=== PATIENT | male | born 1965 | race Caucasian/White ===

== ENCOUNTER 2023-10-05 10:27 | Inpatient (IN) | payer MEDICAID ==
[~2023-10-05] VITALS: Ht 167.6 cm; Wt 49.9 kg
[2023-10-05 11:35] LABS: BASOPHILS % (AUTO) 0.1 % (0-1); EOSINOPHILS % (AUTO) 0.1 % (0-6); HEMATOCRIT 29.2 % (42.0-52.0); HEMOGLOBIN 9.9 g/dl (14.0-17.9); LYMPHOCYTES # (AUTO) 0.3 X10'3 (1.1-4.8); LYMPHOCYTES % (AUTO) 6.5 % (21-51); MEAN CORPUSCULAR HEMOGLOBIN 30.9 PG (27.0-31.0); MEAN CORPUSCULAR VOLUME 90.9 FL (78-98); MEAN PLATELET VOLUME 7.6 FL (7.4-10.4); MONOCYTES # (AUTO) 0.1 X10'3 (0-0.9); MONOCYTES % (AUTO) 1.5 % (2-12); NEUTROPHILS # (AUTO) 4.2 X10'3 (1.8-7.7); NEUTROPHILS % (AUTO) 91.8 % (42-75); PLATELET COUNT 169 X10'3 (140-440); RED BLOOD COUNT 3.22 X10'6 (4.70-6.10); RED CELL DISTRIBUTION WIDTH 12.8 % (11.5-14.5); WHITE BLOOD COUNT 4.5 X10'3 (4.5-11.0)
[2023-10-05] MEDS ORDERED: heparin 25,000 UNIT/250ml bag 250 ML IV PRN (12:00)
[2023-10-05] MEDS: aspirin 81mg tab.chew PO ONE (12:08)
[2023-10-05] MEDS: nitroGLYCERIN 1gm ointment UD TP ONE (12:09)
[2023-10-05 12:13] LABS: ALBUMIN 2.6 G/DL (3.4-5.0); ANION GAP 18 (8-16); BLOOD UREA NITROGEN 48 MG/DL (7-18); BUN/CREATININE RATIO 15.6 (10.0-20.0); CALCIUM 7.4 MG/DL (8.5-10.1); CHLORIDE 106 MMOL/L (99-107); CREATININE 3.08 MG/DL (0.60-1.10); GLUCOSE 117 MG/DL (70-104); LIPASE 17 U/L (16-77); PRO BRAIN NATRIURETIC PEPTIDE 1166 PG/ML (0-125); SODIUM 136 MMOL/L (135-145); eCRCL 21 ML/MIN; eGFR 21 ML/MIN
[2023-10-05 12:15] LABS: POTASSIUM 4.8 MMOL/L (3.5-5.1)
[2023-10-05] MEDS: heparin 10,000 units/1 ML INJ IV ONE (12:24)
[2023-10-05] MEDS: heparin 25,000 UNIT/250ml bag 250 ML IV PRN (12:24)
[2023-10-05 12:44] LABS: TOTAL CARBON DIOXIDE 12.2 MMOL/L (24-32)
[2023-10-05 12:47] LABS: BILIRUBIN,URINE NEGATIVE (Neg); CLARITY,URINE SLIGHTLY CLOUDY (Clear); COLOR,URINE YELLOW (Yellow); GLUCOSE, URINE NEGATIVE (Neg); KETONES,URINE TRACE mg/dl (Neg); LEUKOCYTE ESTERASE ,URINE NEGATIVE (Neg); NITRITES, URINE NEGATIVE (Neg); OCCULT BLOOD,URINE MODERATE (Neg); PH,URINE 5.5 (4.8-8.0); PROTEIN,URINE NEGATIVE (Neg); UROBILINOGEN,URINE 0.2 E.U/dL (0.2-1.0)
[2023-10-05 12:48] LABS: MAGNESIUM 1.7 MG/DL (1.5-2.4); PRO BRAIN NATRIURETIC PEPTIDE 1308 PG/ML (0-125)
[2023-10-05 12:53] LABS: UA COLLECTION TYPE CLN CATCH MIDSTREAM
[2023-10-05] MEDS ORDERED: magnesium Cl slow-release 64mg tablet PO PRN (12:55)
[2023-10-05] MEDS ORDERED: potassium Cl 20 mEq SR tablet PO PRN (12:55)
[2023-10-05] MEDS ORDERED: acetaminophen 325mg tablet PO PRN (12:55)
[2023-10-05] MEDS ORDERED: magnesium 4gm in 100ml NS 100 ML IV PRN (12:55)
[2023-10-05] MEDS ORDERED: magnesium 2GM in 50ml NS 50 ML IV PRN (12:55)
[2023-10-05] MEDS ORDERED: magnesium hydroxide 30ml (MOM) UD suspension PO PRN (12:55)
[2023-10-05] MEDS ORDERED: ondansetron/PF 4mg/2ml inj IV PRN (12:55)
[2023-10-05] MEDS ORDERED: mag hydrox/Alum hydrox/simeth 30ml oral suspension PO PRN (12:55)
[2023-10-05] MEDS ORDERED: potassium Cl 40MEQ/1/2NS 520ml 520 ML IV PRN (12:55)
[2023-10-05 12:57] LABS: AMORPHOUS URATES 1+
[2023-10-05 12:59] LABS: BACTERIA,URINE FEW /HPF (Neg); SQUAMOUS EPITHELIAL CELL,UR FEW /LPF (FEW)
[2023-10-05 13:00] LABS: RBC,URINE 0-2 /HPF (0-2); WBC,URINE 0-4 /HPF (0-4)
[2023-10-05 13:01] LABS: MUCUS STRANDS FEW /LPF (Neg)
[2023-10-05] MEDS: PERFLUTREN PROTEIN-A MICROSPHR (Optison) 0.22 MG/ML 3ML VIAL IV ONE (13:03)
[2023-10-05 13:57] LABS: CHOL/HDL RATIO 3.2 (0.00-4.99); CHOLESTEROL 86 MG/DL (0-200); HDL CHOLESTEROL 27 MG/DL (35-60); LDL CHOLESTEROL 34 MG/DL (50-100); PHOSPHORUS 5.5 MG/DL (2.3-4.5); THYROID STIMULATING HORMONE 1.22 ulU/ml (0.34-4.50); TRIGLYCERIDES 61 MG/DL (20-135)
[2023-10-05 14:01] LABS: PHOSPHORUS 5.6 MG/DL (2.3-4.5)
[2023-10-05] MEDS: atorvastatin 20mg tablet PO SCH ×2 (14:05→14:07)
[2023-10-05] MEDS: carVEDilol 3.125mg tablet PO SCH (14:05)
[2023-10-05] MEDS: normal saline 1000ml 1,000 ML IV SCH (14:08)
[2023-10-05] MEDS: aspirin 325mg tablet, delayed-release (Ecotrin) PO ONE (14:14)
[2023-10-05] MEDS: ringers solution, lacted 1,000 ML IV SCH (14:53)
[2023-10-05 14:57] LABS: % IRON SATURATION 19 % (11-46); IRON 23 UG/DL (53-167); TOTAL IRON BINDING CAPACITY 122 UG/DL (259-388)
[2023-10-05] MEDS: SODIUM BICARBONATE 150MEQ IN D5W 1,000 ML IV SCH (15:19)
[2023-10-05 17:37] LABS: ABG BASE EXCESS -13.6 mmol/L (-2.0-2.0); ABG HCO3 11.3 mmol/L (22.0-26.0); ABG OXYGEN SATURATION 97.3 % (94-97); ABG PCO2 (T) 23.4 mmHg (35.0-48.0); ABG PH (T) 7.299 (7.340-7.440); ABG PO2 (T) 107.9 mmHg (75.0-100.0); ALLEN'S TEST POSITIVE; FCOHb 0.2 % (0.0-3.9); FHHb 2.7 % (0.0-5.0); FMetHb 0.1 % (0.0-1.5); PATIENT TEMPERATURE 36.7; TOTAL HEMOGLOBIN 10.3 G/dl (14.0-17.9)
[2023-10-05] MEDS: lactose-reduced food (Ensure High Protein) 237ml bottle PO SCH (18:00)
[2023-10-05 19:30] VITALS: BP 110/66; PULSE 82; RESP 14; TEMP 97.9; O2SAT 100
[2023-10-05] MEDS: docusate sod 100mg capsule PO SCH (20:00)
[2023-10-05] MEDS: K and/or MAG REPLACEMENT MC SCH (20:00)
[2023-10-05] MEDS: morphine 2 MG/ML inj. syringe IV PRN (21:59)
[2023-10-05 22:00] VITALS: BP 109/64; PULSE 88; RESP 16; TEMP 97.5; O2SAT 99
[2023-10-06 02:00] VITALS: BP 93/61; PULSE 93; RESP 22; TEMP 97.7; O2SAT 93
[2023-10-06] MEDS: HYDROcodone/acetaminophen 5mg/325mg tablet PO PRN (05:46)
[2023-10-06 06:00] VITALS: BP 95/59; PULSE 82; RESP 18; TEMP 97.5; O2SAT 100
[2023-10-06 06:20] LABS: BASOPHILS % (AUTO) 0.1 % (0-1); EOSINOPHILS % (AUTO) 0 % (0-6); HEMOGLOBIN 7.4 g/dl (14.0-17.9); LYMPHOCYTES # (AUTO) 0.6 X10'3 (1.1-4.8); LYMPHOCYTES % (AUTO) 11.3 % (21-51); MEAN CORPUSCULAR HEMOGLOBIN 30.4 PG (27.0-31.0); MEAN CORPUSCULAR HGB CONC 34.7 g/dL (33.0-36.5); MEAN CORPUSCULAR VOLUME 87.8 FL (78-98); MEAN PLATELET VOLUME 7.5 FL (7.4-10.4); MONOCYTES # (AUTO) 0.2 X10'3 (0-0.9); MONOCYTES % (AUTO) 4.9 % (2-12); NEUTROPHILS # (AUTO) 4.2 X10'3 (1.8-7.7); NEUTROPHILS % (AUTO) 83.7 % (42-75); PLATELET COUNT 150 X10'3 (140-440); RED BLOOD COUNT 2.44 X10'6 (4.70-6.10); RED CELL DISTRIBUTION WIDTH 12.7 % (11.5-14.5)
[2023-10-06 06:45] LABS: HEMATOCRIT 21.4 % (42.0-52.0)
[2023-10-06 07:03] LABS: ALBUMIN 2.3 G/DL (3.4-5.0); ANION GAP 11 (8-16); BLOOD UREA NITROGEN 60 MG/DL (7-18); BUN/CREATININE RATIO 22.7 (10.0-20.0); CALCIUM 7.2 MG/DL (8.5-10.1); CHLORIDE 107 MMOL/L (99-107); CREATININE 2.64 MG/DL (0.60-1.10); FERRITIN 696 NG/ML (26-388); GLUCOSE 219 MG/DL (70-104); MAGNESIUM 1.7 MG/DL (1.5-2.4); POTASSIUM 3.6 MMOL/L (3.5-5.1); PRO BRAIN NATRIURETIC PEPTIDE 3877 PG/ML (0-125); SODIUM 138 MMOL/L (135-145); TOTAL CARBON DIOXIDE 19.6 MMOL/L (24-32); eCRCL 23 ML/MIN; eGFR 25 ML/MIN
[2023-10-06 07:15] LABS: % IRON SATURATION 84 % (11-46); IRON 94 UG/DL (53-167); TOTAL IRON BINDING CAPACITY 112 UG/DL (259-388)
[2023-10-06] MEDS: FLU VACC QS2023-24(6MOS UP)/PF 60 MCG/0.5 ML SYRINGE IM ONE (10:00)
[2023-10-06 11:00] VITALS: BP 98/60; PULSE 83; RESP 12; TEMP 97.9; O2SAT 98
[2023-10-06 15:00] VITALS: BP 98/79; PULSE 78; RESP 8; TEMP 98.1; O2SAT 93
[2023-10-06 18:00] VITALS: BP 89/58; PULSE 77; RESP 15; TEMP 97.8; O2SAT 97
[2023-10-06] MEDS ORDERED: ferrous sulfate ER tablet 140 MG TABLET.ER PO SCH (19:15)
[2023-10-06] MEDS: folic acid/vitamin B complex w/vitamin C 0.8mg tablet PO SCH (19:15)
[2023-10-06] MEDS: FERROUS SULFATE 142 MG TABLET.ER (45mg elemental) PO SCH (21:03)
[2023-10-06 22:00] VITALS: BP 97/57; PULSE 80; RESP 12; TEMP 98.5; O2SAT 100
[2023-10-07] VITALS (15 sets, daily range): BP systolic 90–159; BP diastolic 56–79; PULSE 70–107; RESP 12–20; TEMP 97.4–99.3; O2SAT 91–98
[2023-10-07 06:51] LABS: BASOPHILS % (AUTO) 0.2 % (0-1); EOSINOPHILS % (AUTO) 1.2 % (0-6); LYMPHOCYTES # (AUTO) 0.5 X10'3 (1.1-4.8); LYMPHOCYTES % (AUTO) 16.3 % (21-51); MEAN CORPUSCULAR HGB CONC 34.8 g/dL (33.0-36.5); MEAN CORPUSCULAR VOLUME 89.1 FL (78-98); MEAN PLATELET VOLUME 7.4 FL (7.4-10.4); MONOCYTES # (AUTO) 0.1 X10'3 (0-0.9); MONOCYTES % (AUTO) 5.1 % (2-12); NEUTROPHILS # (AUTO) 2.2 X10'3 (1.8-7.7); NEUTROPHILS % (AUTO) 77.2 % (42-75); PLATELET COUNT 124 X10'3 (140-440); RED BLOOD COUNT 2.11 X10'6 (4.70-6.10); WHITE BLOOD COUNT 2.9 X10'3 (4.5-11.0)
[2023-10-07 07:23] LABS: HEMATOCRIT 18.8 % (42.0-52.0); HEMOGLOBIN 6.5 g/dl (14.0-17.9)
[2023-10-07 07:24] LABS: ALBUMIN 2.3 G/DL (3.4-5.0); ANION GAP 13 (8-16); BLOOD UREA NITROGEN 47 MG/DL (7-18); BUN/CREATININE RATIO 26.6 (10.0-20.0); CALCIUM 7.5 MG/DL (8.5-10.1); CHLORIDE 112 MMOL/L (99-107); CREATININE 1.77 MG/DL (0.60-1.10); GLUCOSE 117 MG/DL (70-104); MAGNESIUM 1.6 MG/DL (1.5-2.4); POTASSIUM 3.3 MMOL/L (3.5-5.1); PRO BRAIN NATRIURETIC PEPTIDE 4706 PG/ML (0-125); SODIUM 145 MMOL/L (135-145); TOTAL CARBON DIOXIDE 19.9 MMOL/L (24-32); eCRCL 34 ML/MIN; eGFR 39 ML/MIN
[2023-10-07 08:39] LABS: TOTAL CELLS COUNTED 100
[2023-10-07 08:40] LABS: PLATELET ESTIMATE DECREASED
[2023-10-07 08:41] LABS: ELLIPTOCYTES FEW; SCHISTOCYTES FEW
[2023-10-07] MEDS: pantoprazole 40 MG vial IV SCH (08:50)
[2023-10-07 09:06] LABS: MEAN CORPUSCULAR HEMOGLOBIN 30.6 PG (27.0-31.0); MEAN CORPUSCULAR HGB CONC 34.3 g/dL (33.0-36.5); MEAN CORPUSCULAR VOLUME 89.3 FL (78-98); MEAN PLATELET VOLUME 7.5 FL (7.4-10.4); PLATELET COUNT 125 X10'3 (140-440); RED CELL DISTRIBUTION WIDTH 13.2 % (11.5-14.5); WHITE BLOOD COUNT 2.8 X10'3 (4.5-11.0)
[2023-10-07 09:13] LABS: HEMATOCRIT 18.7 % (42.0-52.0); HEMOGLOBIN 6.4 g/dl (14.0-17.9)
[2023-10-07] MEDS: NUT.TX.IMP.RENAL FXN,LAC-REDUC (Nepro) 237 ML VANILLA PO SCH (13:00)
[2023-10-07] MEDS: EPOETIN ALFA-EPBX 20,000 UNIT/ML 1 ML MDV SQ ONE (13:50)
[2023-10-07] MEDS: potassium Cl 20 mEq SR tablet PO PRN (20:12)
[2023-10-08] VITALS (11 sets, daily range): BP systolic 95–149; BP diastolic 55–93; PULSE 60–81; RESP 10–17; TEMP 97.3–98.4; O2SAT 96–100
[2023-10-08 06:34] LABS: BASOPHILS % (AUTO) 0.5 % (0-1); EOSINOPHILS # (AUTO) 0.1 X10'3 (0-0.9); EOSINOPHILS % (AUTO) 2.4 % (0-6); HEMATOCRIT 28.9 % (42.0-52.0); HEMOGLOBIN 10.1 g/dl (14.0-17.9); LYMPHOCYTES # (AUTO) 0.8 X10'3 (1.1-4.8); LYMPHOCYTES % (AUTO) 36.8 % (21-51); MEAN CORPUSCULAR HEMOGLOBIN 30.4 PG (27.0-31.0); MEAN CORPUSCULAR HGB CONC 34.8 g/dL (33.0-36.5); MEAN CORPUSCULAR VOLUME 87.2 FL (78-98); MEAN PLATELET VOLUME 7.5 FL (7.4-10.4); MONOCYTES # (AUTO) 0.3 X10'3 (0-0.9); MONOCYTES % (AUTO) 11.1 % (2-12); NEUTROPHILS # (AUTO) 1.1 X10'3 (1.8-7.7); NEUTROPHILS % (AUTO) 49.2 % (42-75); PLATELET COUNT 106 X10'3 (140-440); RED BLOOD COUNT 3.31 X10'6 (4.70-6.10); RED CELL DISTRIBUTION WIDTH 14.5 % (11.5-14.5); WHITE BLOOD COUNT 2.3 X10'3 (4.5-11.0)
[2023-10-08 07:09] LABS: ALBUMIN 2.3 G/DL (3.4-5.0); ANION GAP 6 (8-16); BLOOD UREA NITROGEN 32 MG/DL (7-18); BUN/CREATININE RATIO 24.2 (10.0-20.0); CALCIUM 7.8 MG/DL (8.5-10.1); CREATININE 1.32 MG/DL (0.60-1.10); GLUCOSE 100 MG/DL (70-104); MAGNESIUM 1.6 MG/DL (1.5-2.4); POTASSIUM 3.9 MMOL/L (3.5-5.1); PRO BRAIN NATRIURETIC PEPTIDE 6202 PG/ML (0-125); SODIUM 145 MMOL/L (135-145); TOTAL CARBON DIOXIDE 24.7 MMOL/L (24-32); eCRCL 46 ML/MIN; eGFR 55 ML/MIN
[2023-10-08 08:00] LABS: TOTAL CELLS COUNTED 100
[2023-10-08 08:02] LABS: BURR CELLS FEW; ELLIPTOCYTES FEW; PLATELET ESTIMATE DECREASED
[2023-10-08 09:10] LABS: CHLORIDE 114 MMOL/L (99-107)
[2023-10-08] MEDS: furosemide 20 MG/2 ML vial IV SCH (10:50)
[2023-10-08] MEDS ORDERED: LIDOcaine Viscous 15ml cup ONE ×2 (13:19→14:00)
[2023-10-08] MEDS ORDERED: MIDAZolam 1 MG/ML 5ML VIAL ONE (14:02)
[2023-10-08] MEDS ORDERED: fentaNYL/PF 50MCG/1 ML 2ML syringe ONE (14:02)
[2023-10-09 00:19] VITALS: RESP 12; O2SAT 96
[2023-10-09 02:00] VITALS: BP 125/70; RESP 13; TEMP 97.8; O2SAT 86
[2023-10-09 06:00] VITALS: BP 115/20; PULSE 72; RESP 16; TEMP 97.7; O2SAT 97
[2023-10-09 06:00] LABS: ANION GAP 9 (8-16); BLOOD UREA NITROGEN 30 MG/DL (7-18); BUN/CREATININE RATIO 23.3 (10.0-20.0); CHLORIDE 107 MMOL/L (99-107); CREATININE 1.29 MG/DL (0.60-1.10); GLUCOSE 154 MG/DL (70-104); POTASSIUM 3.2 MMOL/L (3.5-5.1); SODIUM 143 MMOL/L (135-145); TOTAL CARBON DIOXIDE 27.4 MMOL/L (24-32)
[2023-10-09 06:01] LABS: ALBUMIN 2.6 G/DL (3.4-5.0); CALCIUM 7.9 MG/DL (8.5-10.1); MAGNESIUM 1.3 MG/DL (1.5-2.4); eCRCL 48 ML/MIN; eGFR 57 ML/MIN
[2023-10-09 06:22] LABS: BASOPHILS % (AUTO) 0.5 % (0-1); EOSINOPHILS # (AUTO) 0.1 X10'3 (0-0.9); EOSINOPHILS % (AUTO) 5.8 % (0-6); HEMATOCRIT 32.1 % (42.0-52.0); HEMOGLOBIN 11.3 g/dl (14.0-17.9); LYMPHOCYTES # (AUTO) 0.9 X10'3 (1.1-4.8); LYMPHOCYTES % (AUTO) 39.6 % (21-51); MEAN CORPUSCULAR HEMOGLOBIN 30.5 PG (27.0-31.0); MEAN CORPUSCULAR HGB CONC 35.2 g/dL (33.0-36.5); MEAN CORPUSCULAR VOLUME 86.7 FL (78-98); MEAN PLATELET VOLUME 7.6 FL (7.4-10.4); MONOCYTES # (AUTO) 0.3 X10'3 (0-0.9); MONOCYTES % (AUTO) 10.8 % (2-12); NEUTROPHILS % (AUTO) 43.3 % (42-75); PLATELET COUNT 131 X10'3 (140-440); RED CELL DISTRIBUTION WIDTH 14.2 % (11.5-14.5); WHITE BLOOD COUNT 2.4 X10'3 (4.5-11.0)
[2023-10-09 07:38] LABS: ELLIPTOCYTES FEW; PLATELET ESTIMATE DECREASED; TOTAL CELLS COUNTED 100
[2023-10-09 08:00] VITALS: RESP 15; O2SAT 95
[2023-10-09] MEDS ORDERED: PANT-47 PO (10:58)
[2023-10-09] MEDS ORDERED: FURO-150 PO (10:58)
[2023-10-09 11:00] VITALS: BP 129/83; PULSE 74; RESP 15; TEMP 97.4; O2SAT 99
[2023-10-09] MEDS: magnesium oxide 400mg tablet PO ONE (11:00)
== END 2023-10-09 14:00 | disposition home or self-care (01) | DRG 241 ==
LOC: ER 10:27 → ED HOLD 12:58 → EDBEDREQ 17:55 → PCU 3S 19:10
PROVIDERS: ADMIT Internal Medicine; ATTEND Internal Medicine
PROC: 30233N1 Transfusion of Nonautologous Red Blood Cells into Peripheral Vein, Percutaneous Approach (ICD-10-PCS; 2023-10-07)
PROC: 0DB68ZX Excision of Stomach, Via Natural or Artificial Opening Endoscopic, Diagnostic (ICD-10-PCS; principal; 2023-10-08)
DX: K29.00 Acute gastritis without bleeding (principal); D61.818 Other pancytopenia; N17.9 Acute kidney failure, unspecified; E46 Unspecified protein-calorie malnutrition; E87.20 Acidosis, unspecified; E11.22 Type 2 diabetes mellitus with diabetic chronic kidney disease; E86.0 Dehydration; N18.9 Chronic kidney disease, unspecified; Z90.5 Acquired absence of kidney; Z92.21 Personal history of antineoplastic chemotherapy; Z85.528 Personal history of other malignant neoplasm of kidney; Z68.1 Body mass index [BMI] 19.9 or less, adult
CPT/HCPCS: 36415; 36430; 36600; 43239; 71045; 76770; 80048; 80061; 81001; 82607; 82728; 82803; 83036; 83540; 83550; 83690; 83735; 83880; 84100; 84443; 84484; 85007; 85018; 85025; 85027; 85730; 86885; 86900; 86901; 86920; 87081; 90686; 93005; 93306; 99152; 99285; A4615; A4620; A6212; C9113; G0378; J1644; J1940; J2250; J2270; J3010; J3490; J7030; J7070; J7120; P9016; Q4081

== ENCOUNTER 2024-03-06 08:20 | Inpatient (IN) | payer MEDICAID ==
[~2024-03-06] VITALS: Ht 170.2 cm; Wt 54.5 kg
[~2024-03-06 08:20] MED LIST: PANT-47 PO
[2024-03-06 08:40] LABS: BASOPHILS % (AUTO) 0.3 % (0-1); EOSINOPHILS % (AUTO) 0.8 % (0-6); HEMOGLOBIN 7.8 g/dl (14.0-17.9); LYMPHOCYTES # (AUTO) 0.5 X10'3 (1.1-4.8); LYMPHOCYTES % (AUTO) 20.1 % (21-51); MEAN CORPUSCULAR HEMOGLOBIN 30.8 PG (27.0-31.0); MEAN CORPUSCULAR HGB CONC 32.5 g/dL (33.0-36.5); MEAN CORPUSCULAR VOLUME 94.9 FL (78-98); MEAN PLATELET VOLUME 6.3 FL (7.4-10.4); MONOCYTES # (AUTO) 0.2 X10'3 (0-0.9); MONOCYTES % (AUTO) 6.5 % (2-12); NEUTROPHILS # (AUTO) 1.9 X10'3 (1.8-7.7); NEUTROPHILS % (AUTO) 72.3 % (42-75); PLATELET COUNT 155 X10'3 (140-440); RED BLOOD COUNT 2.53 X10'6 (4.70-6.10); RED CELL DISTRIBUTION WIDTH 14.9 % (11.5-14.5); WHITE BLOOD COUNT 2.6 X10'3 (4.5-11.0)
[2024-03-06] MEDS: normal saline 1000ml 1,000 ML IV ONE ×2 (08:45→16:50)
[2024-03-06] MEDS: normal saline 1000ML IV soln IVB ONE ×3 (08:45→15:36)
[2024-03-06] MEDS: diatr meglu/diatrizoate 30ml oral sol.-(3 dose) bottle PO SCH (08:46)
[2024-03-06 08:53] LABS: ALANINE AMINOTRANSFERASE 21 U/L (12-78); ALBUMIN/GLOBULIN RATIO 1.1 (1.1-1.5); ALKALINE PHOSPHATASE 90 IU/L (46-116); ANION GAP 10 (8-16); ASPARTATE AMINO TRANSFERASE 19 U/L (10-37); BILIRUBIN,TOTAL 0.6 MG/DL (0.1-1.0); BLOOD UREA NITROGEN 40 MG/DL (7-18); BUN/CREATININE RATIO 20.9 (10.0-20.0); CALCIUM 7.9 MG/DL (8.5-10.1); CHLORIDE 110 MMOL/L (99-107); CREATININE 1.91 MG/DL (0.60-1.10); GLUCOSE 79 MG/DL (70-104); LIPASE 29 U/L (16-77); MAGNESIUM 1.6 MG/DL (1.5-2.4); POTASSIUM 4.5 MMOL/L (3.5-5.1); SODIUM 138 MMOL/L (135-145); TOTAL CARBON DIOXIDE 17.6 MMOL/L (24-32); TOTAL PROTEIN 5.7 G/DL (6.4-8.2); eCRCL 31 ML/MIN; eGFR 36 ML/MIN
[2024-03-06 09:01] LABS: PLATELET ESTIMATE DECREASED; TOTAL CELLS COUNTED 100
[2024-03-06 09:12] LABS: LACTATE DEHYDROGENASE 386 U/L (85-227)
[2024-03-06 12:25] LABS: APTT 33 SECONDS (22-32); INR 1.1 INR; PROTHROMBIN TIME 11.5 SECONDS (9.0-12.0)
[2024-03-06] MEDS: metroNIDAZOLE-Flagyl 500mg/NS 100 ML IV STA (12:30)
[2024-03-06] MEDS: acetaminophen 1,000mg/100ml IV 100 ML IV ONE (12:30)
[2024-03-06 13:03] LABS: BILIRUBIN,URINE NEGATIVE (Neg); CLARITY,URINE CLEAR (Clear); COLOR,URINE YELLOW (Yellow); GLUCOSE, URINE NEGATIVE (Neg); KETONES,URINE NEGATIVE (Neg); LEUKOCYTE ESTERASE ,URINE NEGATIVE (Neg); OCCULT BLOOD,URINE NEGATIVE (Neg); PH,URINE 5.5 (4.8-8.0); PROTEIN,URINE NEGATIVE (Neg); UROBILINOGEN,URINE 0.2 E.U/dL (0.2-1.0)
[2024-03-06 13:11] LABS: NITRITES, URINE NEGATIVE (Neg)
[2024-03-06 13:27] LABS: UA COLLECTION TYPE CLN CATCH MIDSTREAM
[2024-03-06 15:05] LABS: ETHANOL < 10 MG/DL (<10)
[2024-03-06 15:19] LABS: OSMOLALITY 290 MOSM/K (280-300)
[2024-03-06 15:44] LABS: OCCULT BLOOD STOOL POSITIVE (Neg)
[2024-03-06 16:23] VITALS: BP 87/51; PULSE 83; RESP 20; TEMP 97.1; O2SAT 96
[2024-03-06] MEDS: normal saline 1000ml 1,000 ML IV SCH (16:26)
[2024-03-06] MEDS: loperamide 2mg capsule PO ONE (16:52)
[2024-03-06 17:27] VITALS: RESP 20; O2SAT 96
[2024-03-06] MEDS: pantoprazole 40MG/NS 100ML BAG 100 ML IV SCH (17:34)
[2024-03-06 18:00] VITALS: BP 80/45; PULSE 78; RESP 15; TEMP 97.9; O2SAT 95
[2024-03-06] MEDS ORDERED: potassium Cl 20 mEq SR tablet PO PRN ×2 (18:15)
[2024-03-06] MEDS ORDERED: magnesium hydroxide 30ml (MOM) UD suspension PO PRN (18:15)
[2024-03-06] MEDS ORDERED: ondansetron/PF 4mg/2ml inj IV PRN (18:15)
[2024-03-06] MEDS ORDERED: magnesium sulf-water 2g/50mL 50 ML IV PRN (18:15)
[2024-03-06] MEDS ORDERED: magnesium sulf-water 4G/100mL 100 ML IV PRN (18:15)
[2024-03-06] MEDS ORDERED: mag hydrox/Alum hydrox/simeth 30ml oral suspension PO PRN (18:15)
[2024-03-06] MEDS ORDERED: acetaminophen 325mg tablet PO PRN (18:15)
[2024-03-06] MEDS ORDERED: potassium Cl 40MEQ/1/2NS 520ml 520 ML IV PRN (18:15)
[2024-03-06] MEDS ORDERED: magnesium Cl slow-release 64mg tablet PO PRN (18:15)
[2024-03-06 19:00] VITALS: RESP 15; O2SAT 94; O2SAT 95
[2024-03-06] MEDS: docusate sod 100mg capsule PO SCH (19:35)
[2024-03-06] MEDS: K and/or MAG REPLACEMENT MC SCH (19:35)
[2024-03-06 20:38] LABS: HEMATOCRIT 24.3 % (42.0-52.0); MEAN CORPUSCULAR HEMOGLOBIN 31.6 PG (27.0-31.0); MEAN CORPUSCULAR HGB CONC 32.8 g/dL (33.0-36.5); MEAN CORPUSCULAR VOLUME 96.4 FL (78-98); MEAN PLATELET VOLUME 6.7 FL (7.4-10.4); PLATELET COUNT 134 X10'3 (140-440); RED BLOOD COUNT 2.52 X10'6 (4.70-6.10); RED CELL DISTRIBUTION WIDTH 14.6 % (11.5-14.5); WHITE BLOOD COUNT 2.4 X10'3 (4.5-11.0)
[2024-03-06 22:00] VITALS: BP 104/60; PULSE 97; RESP 17; TEMP 99.3; O2SAT 95
[2024-03-07] MEDS: piperacillin/tazo 3.375gm/50ml 50 ML IV SCH (00:05)
[2024-03-07 06:30] VITALS: BP 101/56; PULSE 96; RESP 18; TEMP 99.2; O2SAT 94
[2024-03-07 06:30] LABS: C DIFF ANTIGEN NEGATIVE (NEGATIVE); C DIFF SPECIMEN=DIARRHEA? ACCEPTABLE; C DIFFICILE TOXINS A&B NEGATIVE (Neg)
[2024-03-07 07:47] LABS: BASOPHILS % (AUTO) 0.2 % (0-1); EOSINOPHILS % (AUTO) 0.7 % (0-6); HEMOGLOBIN 7.9 g/dl (14.0-17.9); LYMPHOCYTES # (AUTO) 0.6 X10'3 (1.1-4.8); LYMPHOCYTES % (AUTO) 24.3 % (21-51); MEAN CORPUSCULAR HEMOGLOBIN 30.7 PG (27.0-31.0); MEAN CORPUSCULAR HGB CONC 31.5 g/dL (33.0-36.5); MEAN CORPUSCULAR VOLUME 97.4 FL (78-98); MEAN PLATELET VOLUME 6.7 FL (7.4-10.4); MONOCYTES # (AUTO) 0.2 X10'3 (0-0.9); MONOCYTES % (AUTO) 10.1 % (2-12); NEUTROPHILS # (AUTO) 1.5 X10'3 (1.8-7.7); NEUTROPHILS % (AUTO) 64.7 % (42-75); PLATELET COUNT 114 X10'3 (140-440); RED BLOOD COUNT 2.57 X10'6 (4.70-6.10); RED CELL DISTRIBUTION WIDTH 15.2 % (11.5-14.5); WHITE BLOOD COUNT 2.3 X10'3 (4.5-11.0)
[2024-03-07 08:00] LABS: % IRON SATURATION 7 % (11-46); IRON 10 UG/DL (53-167); TOTAL IRON BINDING CAPACITY 153 UG/DL (259-388)
[2024-03-07 08:00] LABS: HIV ANTIBODY 1&2 RAPID NON-REACTIVE (Neg)
[2024-03-07 08:07] LABS: ALANINE AMINOTRANSFERASE 24 U/L (12-78); ALBUMIN 2.6 G/DL (3.4-5.0); ALKALINE PHOSPHATASE 93 IU/L (46-116); ANION GAP 17 (8-16); ASPARTATE AMINO TRANSFERASE 38 U/L (10-37); BILIRUBIN,TOTAL 0.5 MG/DL (0.1-1.0); BLOOD UREA NITROGEN 33 MG/DL (7-18); BUN/CREATININE RATIO 18.6 (10.0-20.0); CALCIUM 7.9 MG/DL (8.5-10.1); CHLORIDE 107 MMOL/L (99-107); CREATININE 1.77 MG/DL (0.60-1.10); FERRITIN 581 NG/ML (26-388); MAGNESIUM 1.5 MG/DL (1.5-2.4); POTASSIUM 4.2 MMOL/L (3.5-5.1); SODIUM 133 MMOL/L (135-145); TOTAL PROTEIN 5.1 G/DL (6.4-8.2); eCRCL 34 ML/MIN; eGFR 39 ML/MIN
[2024-03-07 08:10] LABS: GLUCOSE 35 MG/DL (70-104); TOTAL CARBON DIOXIDE 8.9 MMOL/L (24-32)
[2024-03-07 08:24] LABS: ACANTHOCYTES FEW; BURR CELLS FEW; ELLIPTOCYTES FEW; PLATELET ESTIMATE DECREASED; TOTAL CELLS COUNTED 100
[2024-03-07 08:25] LABS: TEAR DROP CELLS FEW
[2024-03-07] MEDS: dextrose 50%-water 50ml dispensing syringe IV ONE (08:49)
[2024-03-07] MEDS: HYDROcodone/acetaminophen 5mg/325mg tablet PO PRN (08:54)
[2024-03-07] MEDS ORDERED: morphine 2 MG/ML inj. syringe IV PRN (08:55)
[2024-03-07] MEDS: sodium bicarbonate 1meq/ml inj 150 ML in dextrose 5%-water 1,000 ML IV SCH (10:19)
[2024-03-07 11:00] VITALS: BP 88/49; PULSE 93; RESP 18; TEMP 98.5; O2SAT 94
[2024-03-07 14:04] LABS: ALBUMIN 2.4 G/DL (3.4-5.0); ANION GAP 9 (8-16); BLOOD UREA NITROGEN 31 MG/DL (7-18); BUN/CREATININE RATIO 15.8 (10.0-20.0); CALCIUM 7.8 MG/DL (8.5-10.1); CHLORIDE 109 MMOL/L (99-107); CREATININE 1.96 MG/DL (0.60-1.10); GLUCOSE 89 MG/DL (70-104); POTASSIUM 4.1 MMOL/L (3.5-5.1); SODIUM 132 MMOL/L (135-145); eCRCL 31 ML/MIN; eGFR 35 ML/MIN
[2024-03-07 14:17] LABS: TOTAL CARBON DIOXIDE 14.2 MMOL/L (24-32)
[2024-03-07 18:00] VITALS: BP_SYST 82; BP_DIAS 56; BP_DIAS 86; PULSE 85; RESP 18; TEMP 98.7; O2SAT 92
[2024-03-07 20:30] VITALS: BP 87/57; PULSE 89; O2SAT 93
[2024-03-07 20:35] VITALS: BP 97/57
[2024-03-07 21:23] LABS: HEMOGLOBIN 7.1 g/dl (14.0-17.9); MEAN CORPUSCULAR HGB CONC 33.2 g/dL (33.0-36.5); MONOCYTES # (AUTO) 0.2 X10'3 (0-0.9); NEUTROPHILS # (AUTO) 0.8 X10'3 (1.8-7.7); RED CELL DISTRIBUTION WIDTH 14.8 % (11.5-14.5); WHITE BLOOD COUNT 1.6 X10'3 (4.5-11.0)
[2024-03-07 21:25] LABS: BASOPHILS % (AUTO) 0.2 % (0-1); EOSINOPHILS # (AUTO) 0.1 X10'3 (0-0.9); EOSINOPHILS % (AUTO) 3.3 % (0-6); LYMPHOCYTES # (AUTO) 0.5 X10'3 (1.1-4.8); LYMPHOCYTES % (AUTO) 34.8 % (21-51); MEAN CORPUSCULAR HEMOGLOBIN 31.5 PG (27.0-31.0); MEAN CORPUSCULAR VOLUME 94.7 FL (78-98); MEAN PLATELET VOLUME 6.7 FL (7.4-10.4); NEUTROPHILS % (AUTO) 49.7 % (42-75); PLATELET COUNT 91 X10'3 (140-440); RED BLOOD COUNT 2.25 X10'6 (4.70-6.10)
[2024-03-07 21:29] LABS: ALBUMIN 2.3 G/DL (3.4-5.0); ANION GAP 9 (8-16); BLOOD UREA NITROGEN 29 MG/DL (7-18); CALCIUM 7.8 MG/DL (8.5-10.1); CHLORIDE 108 MMOL/L (99-107); CREATININE 1.93 MG/DL (0.60-1.10); GLUCOSE 102 MG/DL (70-104); POTASSIUM 3.7 MMOL/L (3.5-5.1); SODIUM 132 MMOL/L (135-145); TOTAL CARBON DIOXIDE 15.1 MMOL/L (24-32); eCRCL 31 ML/MIN; eGFR 36 ML/MIN
[2024-03-07 21:39] LABS: HEMATOCRIT 21.3 % (42.0-52.0)
[2024-03-07 22:00] VITALS: BP 94/55; PULSE 87; RESP 16; TEMP 98.1; O2SAT 96
[2024-03-08 05:36] LABS: ABSOLUTE RETICS # 48400 /CUMM (23000-93000); BASOPHILS % (AUTO) 0.5 % (0-1); EOSINOPHILS # (AUTO) 0.1 X10'3 (0-0.9); EOSINOPHILS % (AUTO) 4.5 % (0-6); HEMOGLOBIN 7.3 g/dl (14.0-17.9); LYMPHOCYTES # (AUTO) 0.6 X10'3 (1.1-4.8); LYMPHOCYTES % (AUTO) 38.5 % (21-51); MEAN CORPUSCULAR HEMOGLOBIN 31.5 PG (27.0-31.0); MEAN CORPUSCULAR HGB CONC 33.9 g/dL (33.0-36.5); MEAN CORPUSCULAR VOLUME 92.9 FL (78-98); MEAN PLATELET VOLUME 6.3 FL (7.4-10.4); MONOCYTES # (AUTO) 0.2 X10'3 (0-0.9); MONOCYTES % (AUTO) 11.3 % (2-12); NEUTROPHILS # (AUTO) 0.7 X10'3 (1.8-7.7); NEUTROPHILS % (AUTO) 45.2 % (42-75); PLATELET COUNT 86 X10'3 (140-440); RED BLOOD COUNT 2.33 X10'6 (4.70-6.10); RED CELL DISTRIBUTION WIDTH 14.9 % (11.5-14.5); RETICULOCYTE % (AUTO) 2.1 % (0.5-1.5); WHITE BLOOD COUNT 1.5 X10'3 (4.5-11.0)
[2024-03-08 05:56] LABS: ALANINE AMINOTRANSFERASE 25 U/L (12-78); ALBUMIN 2.4 G/DL (3.4-5.0); ALKALINE PHOSPHATASE 80 IU/L (46-116); ANION GAP 9 (8-16); ASPARTATE AMINO TRANSFERASE 37 U/L (10-37); BILIRUBIN,TOTAL 0.5 MG/DL (0.1-1.0); BLOOD UREA NITROGEN 25 MG/DL (7-18); BUN/CREATININE RATIO 13.8 (10.0-20.0); CHLORIDE 110 MMOL/L (99-107); CREATININE 1.81 MG/DL (0.60-1.10); GLUCOSE 102 MG/DL (70-104); MAGNESIUM 1.5 MG/DL (1.5-2.4); POTASSIUM 3.6 MMOL/L (3.5-5.1); SODIUM 136 MMOL/L (135-145); TOTAL PROTEIN 4.7 G/DL (6.4-8.2); eCRCL 33 ML/MIN; eGFR 38 ML/MIN
[2024-03-08 06:00] VITALS: BP 94/57; PULSE 64; RESP 16; TEMP 98.6; O2SAT 90
[2024-03-08 06:21] LABS: HEMATOCRIT 21.6 % (42.0-52.0)
[2024-03-08 08:00] VITALS: RESP 16; O2SAT 90
[2024-03-08 08:41] LABS: NUCLEATED RED BLOOD CELLS 380 /100WBC (0-0); PLATELET ESTIMATE DECREASED; TOTAL CELLS COUNTED 100
[2024-03-08] MEDS: megestrol acetate 400mg/10ml UD oral suspension PO SCH (08:56)
[2024-03-08 10:00] VITALS: BP 110/53; PULSE 87; RESP 14; TEMP 97.8; O2SAT 95
[2024-03-08 22:00] VITALS: BP 141/66; PULSE 81; RESP 16; TEMP 98.8; O2SAT 96
[2024-03-09 05:49] LABS: BASOPHILS % (AUTO) 0.3 % (0-1); EOSINOPHILS # (AUTO) 0.1 X10'3 (0-0.9); EOSINOPHILS % (AUTO) 4.3 % (0-6); HEMATOCRIT 23.9 % (42.0-52.0); LYMPHOCYTES # (AUTO) 0.6 X10'3 (1.1-4.8); LYMPHOCYTES % (AUTO) 29.2 % (21-51); MEAN CORPUSCULAR HEMOGLOBIN 31.2 PG (27.0-31.0); MEAN CORPUSCULAR HGB CONC 33.5 g/dL (33.0-36.5); MEAN CORPUSCULAR VOLUME 93.1 FL (78-98); MEAN PLATELET VOLUME 7.4 FL (7.4-10.4); MONOCYTES # (AUTO) 0.2 X10'3 (0-0.9); MONOCYTES % (AUTO) 8.2 % (2-12); NEUTROPHILS # (AUTO) 1.2 X10'3 (1.8-7.7); PLATELET COUNT 94 X10'3 (140-440); RED BLOOD COUNT 2.56 X10'6 (4.70-6.10); RED CELL DISTRIBUTION WIDTH 14.6 % (11.5-14.5); WHITE BLOOD COUNT 2.1 X10'3 (4.5-11.0)
[2024-03-09 05:52] LABS: ALANINE AMINOTRANSFERASE 25 U/L (12-78); ALBUMIN 2.4 G/DL (3.4-5.0); ALKALINE PHOSPHATASE 83 IU/L (46-116); ANION GAP 10 (8-16); ASPARTATE AMINO TRANSFERASE 30 U/L (10-37); BILIRUBIN,TOTAL 0.6 MG/DL (0.1-1.0); BLOOD UREA NITROGEN 18 MG/DL (7-18); BUN/CREATININE RATIO 11.7 (10.0-20.0); CALCIUM 8.2 MG/DL (8.5-10.1); CHLORIDE 111 MMOL/L (99-107); CREATININE 1.54 MG/DL (0.60-1.10); GLUCOSE 96 MG/DL (70-104); MAGNESIUM 1.6 MG/DL (1.5-2.4); POTASSIUM 3.7 MMOL/L (3.5-5.1); SODIUM 139 MMOL/L (135-145); TOTAL CARBON DIOXIDE 17.7 MMOL/L (24-32); TOTAL PROTEIN 4.9 G/DL (6.4-8.2); eCRCL 39 ML/MIN; eGFR 46 ML/MIN
[2024-03-09 06:00] VITALS: BP 114/74; PULSE 84; RESP 17; TEMP 97.7; O2SAT 97
[2024-03-09 07:10] LABS: ACANTHOCYTES 1+; PLATELET ESTIMATE DECREASED; POLYCHROMASIA FEW; TOTAL CELLS COUNTED 100
[2024-03-09 07:11] LABS: SCHISTOCYTES FEW
[2024-03-09 08:00] VITALS: RESP 17; O2SAT 97
[2024-03-09 10:00] VITALS: BP 111/70; PULSE 82; RESP 16; TEMP 98.8; O2SAT 100
[2024-03-09] MEDS: loperamide 2mg capsule PO ONE (15:43)
[2024-03-09 18:00] VITALS: BP 101/65; PULSE 65; RESP 18; TEMP 99.5; O2SAT 94
[2024-03-09] MEDS: pantoprazole 40mg Tablet.DR PO SCH (19:10)
[2024-03-09 22:00] VITALS: BP 97/62; PULSE 86; RESP 18; TEMP 98.4; O2SAT 97
[2024-03-10 06:00] VITALS: BP 104/61; PULSE 65; RESP 16; TEMP 97.7; O2SAT 93
[2024-03-10 06:46] LABS: BASOPHILS % (AUTO) 0.5 % (0-1); EOSINOPHILS # (AUTO) 0.1 X10'3 (0-0.9); EOSINOPHILS % (AUTO) 3.5 % (0-6); HEMATOCRIT 23.2 % (42.0-52.0); LYMPHOCYTES # (AUTO) 0.9 X10'3 (1.1-4.8); LYMPHOCYTES % (AUTO) 34.2 % (21-51); MEAN CORPUSCULAR HEMOGLOBIN 32.2 PG (27.0-31.0); MEAN CORPUSCULAR HGB CONC 34.5 g/dL (33.0-36.5); MEAN CORPUSCULAR VOLUME 93.2 FL (78-98); MEAN PLATELET VOLUME 7.5 FL (7.4-10.4); MONOCYTES # (AUTO) 0.2 X10'3 (0-0.9); MONOCYTES % (AUTO) 7.2 % (2-12); NEUTROPHILS # (AUTO) 1.4 X10'3 (1.8-7.7); NEUTROPHILS % (AUTO) 54.6 % (42-75); PLATELET COUNT 109 X10'3 (140-440); RED BLOOD COUNT 2.49 X10'6 (4.70-6.10); RED CELL DISTRIBUTION WIDTH 14.8 % (11.5-14.5); WHITE BLOOD COUNT 2.5 X10'3 (4.5-11.0)
[2024-03-10 07:14] LABS: ALANINE AMINOTRANSFERASE 23 U/L (12-78); ALBUMIN 2.3 G/DL (3.4-5.0); ALBUMIN/GLOBULIN RATIO 0.9 (1.1-1.5); ALKALINE PHOSPHATASE 67 IU/L (46-116); ANION GAP 8 (8-16); ASPARTATE AMINO TRANSFERASE 20 U/L (10-37); BILIRUBIN,TOTAL 0.5 MG/DL (0.1-1.0); BLOOD UREA NITROGEN 20 MG/DL (7-18); BUN/CREATININE RATIO 14.1 (10.0-20.0); CALCIUM 8.2 MG/DL (8.5-10.1); CREATININE 1.42 MG/DL (0.60-1.10); GLUCOSE 113 MG/DL (70-104); MAGNESIUM 1.6 MG/DL (1.5-2.4); POTASSIUM 3.8 MMOL/L (3.5-5.1); SODIUM 143 MMOL/L (135-145); TOTAL CARBON DIOXIDE 20.9 MMOL/L (24-32); TOTAL PROTEIN 4.9 G/DL (6.4-8.2); eCRCL 42 ML/MIN; eGFR 51 ML/MIN
[2024-03-10 07:17] LABS: PLATELET ESTIMATE DECREASED; TOTAL CELLS COUNTED 100
[2024-03-10 07:18] LABS: ACANTHOCYTES 1+; SCHISTOCYTES FEW
[2024-03-10 07:26] LABS: CHLORIDE 114 MMOL/L (99-107)
[2024-03-10 08:00] VITALS: RESP 16; O2SAT 93
[2024-03-10] MEDS: loperamide 2mg capsule PO PRN (08:23)
[2024-03-10] MEDS ORDERED: LEVO-65 PO (10:14)
[2024-03-10] MEDS ORDERED: METR-159 PO (10:14)
== END 2024-03-10 14:40 | disposition home or self-care (01) | DRG 720 ==
LOC: ER 08:21 → ED HOLD 12:34 → ORTHO 4S 16:33
PROVIDERS: ADMIT Internal Medicine; ATTEND Internal Medicine
PROC: BW211ZZ Computerized Tomography (CT Scan) of Abdomen and Pelvis using Low Osmolar Contrast (ICD-10-PCS; principal; 2024-03-06)
DX: A41.9 Sepsis, unspecified organism (principal); E43 Unspecified severe protein-calorie malnutrition; D61.818 Other pancytopenia; N17.9 Acute kidney failure, unspecified; D63.8 Anemia in other chronic diseases classified elsewhere; I95.9 Hypotension, unspecified; E86.0 Dehydration; M25.512 Pain in left shoulder; M25.511 Pain in right shoulder; A09 Infectious gastroenteritis and colitis, unspecified; E16.2 Hypoglycemia, unspecified; N18.9 Chronic kidney disease, unspecified; Z68.1 Body mass index [BMI] 19.9 or less, adult; Z90.5 Acquired absence of kidney; Z85.528 Personal history of other malignant neoplasm of kidney
CPT/HCPCS: 36415; 73030; 74176; 80048; 80053; 80320; 81003; 82272; 82728; 82948; 83540; 83550; 83605; 83615; 83690; 83735; 83930; 84145; 85007; 85025; 85027; 85045; 85610; 85730; 86703; 86885; 86900; 86901; 87040; 87045; 87046; 87081; 87324; 87449; 89055; 93005; 96365; 96375; 99285; A6258; G0378; J0131; J2470; J2543; J3490; J7030; J7040; J7070; Q9963

== ENCOUNTER 2024-06-02 13:29 | Emergency (ER) | payer MEDICAID ==
[~2024-06-02] VITALS: Ht 177.8 cm; Wt 150.0 kg
[2024-06-02] MEDS: normal saline 1000ml 1,000 ML IV ONE (14:04)
[2024-06-02 14:27] LABS: BASOPHILS % (AUTO) 0.5 % (0-1); EOSINOPHILS # (AUTO) 0.1 X10'3 (0-0.9); EOSINOPHILS % (AUTO) 1.9 % (0-6); HEMATOCRIT 24.9 % (42.0-52.0); HEMOGLOBIN 8.3 g/dl (14.0-17.9); LYMPHOCYTES # (AUTO) 0.9 X10'3 (1.1-4.8); LYMPHOCYTES % (AUTO) 23.7 % (21-51); MEAN CORPUSCULAR HEMOGLOBIN 31.8 PG (27.0-31.0); MEAN CORPUSCULAR HGB CONC 33.3 g/dL (33.0-36.5); MEAN CORPUSCULAR VOLUME 95.5 FL (78-98); MEAN PLATELET VOLUME 6.3 FL (7.4-10.4); MONOCYTES # (AUTO) 0.4 X10'3 (0-0.9); MONOCYTES % (AUTO) 10.1 % (2-12); NEUTROPHILS # (AUTO) 2.3 X10'3 (1.8-7.7); NEUTROPHILS % (AUTO) 63.8 % (42-75); PLATELET COUNT 145 X10'3 (140-440); RED BLOOD COUNT 2.61 X10'6 (4.70-6.10); RED CELL DISTRIBUTION WIDTH 14.5 % (11.5-14.5); WHITE BLOOD COUNT 3.6 X10'3 (4.5-11.0)
[2024-06-02 14:39] LABS: ANION GAP 5 (8-16); BLOOD UREA NITROGEN 17 MG/DL (7-18); CHLORIDE 108 MMOL/L (99-107); CREATININE 1.42 MG/DL (0.60-1.10); GLUCOSE 76 MG/DL (70-104); POTASSIUM 4.3 MMOL/L (3.5-5.1); SODIUM 138 MMOL/L (135-145); TOTAL CARBON DIOXIDE 25.1 MMOL/L (24-32)
[2024-06-02 14:40] LABS: ALANINE AMINOTRANSFERASE 20 U/L (12-78); ALBUMIN 2.7 G/DL (3.4-5.0); ALBUMIN/GLOBULIN RATIO 1.1 (1.1-1.5); ALKALINE PHOSPHATASE 101 IU/L (46-116); ASPARTATE AMINO TRANSFERASE 21 U/L (10-37); BILIRUBIN,TOTAL 0.6 MG/DL (0.1-1.0); CALCIUM 7.8 MG/DL (8.5-10.1); LIPASE 27 U/L (16-77); TOTAL PROTEIN 5.2 G/DL (6.4-8.2); eCRCL 56 ML/MIN; eGFR 51 ML/MIN
[2024-06-02 15:09] LABS: BILIRUBIN,URINE NEGATIVE (Neg); CLARITY,URINE CLEAR (Clear); COLOR,URINE YELLOW (Yellow); GLUCOSE, URINE NEGATIVE (Neg); KETONES,URINE NEGATIVE (Neg); LEUKOCYTE ESTERASE ,URINE NEGATIVE (Neg); NITRITES, URINE NEGATIVE (Neg); OCCULT BLOOD,URINE NEGATIVE (Neg); PROTEIN,URINE NEGATIVE (Neg); UROBILINOGEN,URINE 0.2 E.U/dL (0.2-1.0)
[2024-06-02 15:26] LABS: UA COLLECTION TYPE CLN CATCH MIDSTREAM
[2024-06-02 15:31] LABS: URINE AMPHETAMINE SCREEN NEGATIVE (Neg); URINE BARBITUATE SCREEN NEGATIVE (Neg); URINE BENZODIAZEPINES SCREEN NEGATIVE (Neg); URINE CANNABINOID SCREEN NEGATIVE (Neg); URINE COCAINE SCREEN NEGATIVE (Neg); URINE METHADONE SCREEN NEGATIVE (Neg); URINE OPIATE SCREEN NEGATIVE (Neg); URINE PHENCYCLIDINE SCREEN NEGATIVE (Neg)
[2024-06-02 16:28] VITALS: BP 118/76; PULSE 81; RESP 14; TEMP 98; O2SAT 94
== END 2024-06-02 16:33 | disposition home or self-care (01) ==
LOC: ER 13:30
DX: K52.9 Noninfective gastroenteritis and colitis, unspecified (principal); N18.9 Chronic kidney disease, unspecified; Z79.899 Other long term (current) drug therapy; Z98.890 Other specified postprocedural states
CPT/HCPCS: 80053; 80305; 81003; 83690; 85025; 96360; 99283; J7030

== ENCOUNTER 2024-09-27 14:04 | Inpatient (IN) | payer MEDICAID ==
[~2024-09-27] VITALS: Ht 172.7 cm; Wt 50.0 kg
[2024-09-27 14:32] LABS: BASOPHILS % (AUTO) 0.4 % (0-1); EOSINOPHILS # (AUTO) 0.1 X10'3 (0-0.9); EOSINOPHILS % (AUTO) 1.5 % (0-6); HEMOGLOBIN 8.8 g/dl (14.0-17.9); LYMPHOCYTES # (AUTO) 1.1 X10'3 (1.1-4.8); MEAN CORPUSCULAR HGB CONC 33.6 g/dL (33.0-36.5); MEAN CORPUSCULAR VOLUME 89.2 FL (78-98); MEAN PLATELET VOLUME 7.2 FL (7.4-10.4); MONOCYTES # (AUTO) 0.4 X10'3 (0-0.9); MONOCYTES % (AUTO) 7.5 % (2-12); NEUTROPHILS # (AUTO) 4.1 X10'3 (1.8-7.7); NEUTROPHILS % (AUTO) 70.6 % (42-75); PLATELET COUNT 133 X10'3 (140-440); RED BLOOD COUNT 2.92 X10'6 (4.70-6.10); WHITE BLOOD COUNT 5.8 X10'3 (4.5-11.0)
[2024-09-27 14:59] LABS: ALANINE AMINOTRANSFERASE 19 U/L (12-78); ALBUMIN 3.1 G/DL (3.4-5.0); ALBUMIN/GLOBULIN RATIO 0.8 (1.1-1.5); ALKALINE PHOSPHATASE 101 IU/L (46-116); ANION GAP 15 (8-16); ASPARTATE AMINO TRANSFERASE 63 U/L (10-37); BILIRUBIN,TOTAL 0.9 MG/DL (0.1-1.0); BLOOD UREA NITROGEN 40 MG/DL (7-18); BUN/CREATININE RATIO 15.2 (10.0-20.0); CALCIUM 8.6 MG/DL (8.5-10.1); CHLORIDE 101 MMOL/L (99-107); CREATININE 2.63 MG/DL (0.60-1.10); GLUCOSE 67 MG/DL (70-104); POTASSIUM 4.9 MMOL/L (3.5-5.1); SODIUM 134 MMOL/L (135-145); TOTAL CARBON DIOXIDE 17.9 MMOL/L (24-32); TOTAL PROTEIN 7.2 G/DL (6.4-8.2); eCRCL 21 ML/MIN; eGFR 25 ML/MIN
[2024-09-27 15:06] LABS: LIPASE 13 U/L (16-77); PRO BRAIN NATRIURETIC PEPTIDE 979 PG/ML (0-125)
[2024-09-27 16:37] LABS: BILIRUBIN,URINE NEGATIVE (Neg); CLARITY,URINE CLEAR (Clear); COLOR,URINE YELLOW (Yellow); GLUCOSE, URINE NEGATIVE (Neg); KETONES,URINE NEGATIVE (Neg); LEUKOCYTE ESTERASE ,URINE NEGATIVE (Neg); NITRITES, URINE NEGATIVE (Neg); OCCULT BLOOD,URINE TRACE-INTACT (Neg); PH,URINE 5.5 (4.8-8.0); PROTEIN,URINE TRACE mg/dl (Neg); UROBILINOGEN,URINE 0.2 E.U/dL (0.2-1.0)
[2024-09-27 16:46] LABS: UA COLLECTION TYPE NON-SPECIFIED
[2024-09-27 16:48] LABS: BACTERIA,URINE NONE SEEN /HPF (Neg); RBC,URINE 0-2 /HPF (0-2); SQUAMOUS EPITHELIAL CELL,UR NONE SEEN /LPF (FEW); WBC,URINE 0-4 /HPF (0-4)
[2024-09-27] MEDS: dextrose 5%-1/2 normal saline 1,000 ML IV ONE (16:53)
[2024-09-27] MEDS: normal saline 1000ML IV soln IVB ONE (16:53)
[2024-09-27] MEDS ORDERED: bisacodyl 10mg suppository rectal RC PRN (17:20)
[2024-09-27] MEDS ORDERED: magnesium sulf-water 4G/100mL 100 ML IV PRN (17:20)
[2024-09-27] MEDS ORDERED: acetaminophen 325mg tablet PO PRN (17:20)
[2024-09-27] MEDS ORDERED: morphine 2 MG/ML inj. syringe IV PRN ×2 (17:20)
[2024-09-27] MEDS ORDERED: potassium Cl 40MEQ/1/2NS 520ml 520 ML IV PRN (17:20)
[2024-09-27] MEDS ORDERED: ondansetron/PF 4mg/2ml inj IV PRN (17:20)
[2024-09-27] MEDS ORDERED: potassium Cl 20 mEq SR tablet PO PRN ×2 (17:20)
[2024-09-27] MEDS ORDERED: mag hydrox/Alum hydrox/simeth 30ml oral suspension PO PRN (17:20)
[2024-09-27] MEDS ORDERED: magnesium sulf-water 2g/50mL 50 ML IV PRN (17:20)
[2024-09-27] MEDS ORDERED: NO HOME MEDS (17:41)
[2024-09-27] MEDS ORDERED: heparin, porcine 5000 units/ml vial SQ SCH (20:00)
[2024-09-27] MEDS ORDERED: famotidine/PF IV inj 20 MG in normal saline 100ml IV soln 100 ML IV SCH (20:00)
[2024-09-27] MEDS: docusate sod 100mg capsule PO SCH (20:00)
[2024-09-27] MEDS: K and/or MAG REPLACEMENT MC SCH (20:00)
[2024-09-27] MEDS: sodium bicarbonate (8.4%) inj. 100 MEQ in dextrose 5%-water 1,000 ML IV SCH (20:01)
[2024-09-27] MEDS: famotidine/PF 10 mg/ml inj IV SCH (20:03)
[2024-09-27 21:25] VITALS: BP 94/57; PULSE 80; RESP 20; TEMP 98.6; O2SAT 95
[2024-09-28 05:21] LABS: BASOPHILS % (AUTO) 0.1 % (0-1); EOSINOPHILS # (AUTO) 0.2 X10'3 (0-0.9); EOSINOPHILS % (AUTO) 6.6 % (0-6); HEMOGLOBIN 7.4 g/dl (14.0-17.9); LYMPHOCYTES # (AUTO) 0.7 X10'3 (1.1-4.8); LYMPHOCYTES % (AUTO) 22.8 % (21-51); MEAN CORPUSCULAR HGB CONC 34.6 g/dL (33.0-36.5); MEAN CORPUSCULAR VOLUME 86.6 FL (78-98); MEAN PLATELET VOLUME 6.7 FL (7.4-10.4); MONOCYTES # (AUTO) 0.2 X10'3 (0-0.9); MONOCYTES % (AUTO) 6.3 % (2-12); NEUTROPHILS # (AUTO) 2.1 X10'3 (1.8-7.7); NEUTROPHILS % (AUTO) 64.2 % (42-75); PLATELET COUNT 105 X10'3 (140-440); RED BLOOD COUNT 2.48 X10'6 (4.70-6.10); RED CELL DISTRIBUTION WIDTH 15.7 % (11.5-14.5); WHITE BLOOD COUNT 3.2 X10'3 (4.5-11.0)
[2024-09-28 05:28] LABS: HEMATOCRIT 21.4 % (42.0-52.0)
[2024-09-28 05:46] LABS: ALANINE AMINOTRANSFERASE 19 U/L (12-78); ALBUMIN 2.4 G/DL (3.4-5.0); ALBUMIN/GLOBULIN RATIO 0.7 (1.1-1.5); ALKALINE PHOSPHATASE 83 IU/L (46-116); ANION GAP 7 (8-16); ASPARTATE AMINO TRANSFERASE 65 U/L (10-37); BILIRUBIN,TOTAL 0.6 MG/DL (0.1-1.0); BLOOD UREA NITROGEN 31 MG/DL (7-18); BUN/CREATININE RATIO 16.5 (10.0-20.0); CALCIUM 7.7 MG/DL (8.5-10.1); CHLORIDE 103 MMOL/L (99-107); CREATININE 1.88 MG/DL (0.60-1.10); GLUCOSE 168 MG/DL (70-104); MAGNESIUM 1.7 MG/DL (1.5-2.4); POTASSIUM 3.7 MMOL/L (3.5-5.1); SODIUM 133 MMOL/L (135-145); TOTAL CARBON DIOXIDE 22.8 MMOL/L (24-32); TOTAL PROTEIN 5.8 G/DL (6.4-8.2); eCRCL 29 ML/MIN; eGFR 37 ML/MIN
[2024-09-28 06:00] VITALS: BP 105/56; PULSE 87; RESP 23; TEMP 99.5; O2SAT 98
[2024-09-28 08:34] LABS: HEMOGLOBIN 7.2 g/dl (14.0-17.9); MEAN CORPUSCULAR HEMOGLOBIN 29.7 PG (27.0-31.0); MEAN CORPUSCULAR HGB CONC 34.3 g/dL (33.0-36.5); MEAN CORPUSCULAR VOLUME 86.4 FL (78-98); MEAN PLATELET VOLUME 7.2 FL (7.4-10.4); PLATELET COUNT 100 X10'3 (140-440); RED BLOOD COUNT 2.42 X10'6 (4.70-6.10); RED CELL DISTRIBUTION WIDTH 15.7 % (11.5-14.5); WHITE BLOOD COUNT 3.4 X10'3 (4.5-11.0)
[2024-09-28 08:42] LABS: HEMATOCRIT 20.9 % (42.0-52.0)
[2024-09-28 13:59] VITALS: BP 109/65; PULSE 105; RESP 20; TEMP 99.6; O2SAT 98
[2024-09-28 15:44] LABS: HEMATOCRIT 22.1 % (42.0-52.0); HEMOGLOBIN 7.6 g/dl (14.0-17.9); MEAN CORPUSCULAR HEMOGLOBIN 29.9 PG (27.0-31.0); MEAN CORPUSCULAR HGB CONC 34.3 g/dL (33.0-36.5); MEAN CORPUSCULAR VOLUME 87.1 FL (78-98); PLATELET COUNT 112 X10'3 (140-440); RED BLOOD COUNT 2.54 X10'6 (4.70-6.10); WHITE BLOOD COUNT 3.5 X10'3 (4.5-11.0)
[2024-09-28 16:03] VITALS: TEMP 99.1
[2024-09-28 18:00] VITALS: BP 98/54; PULSE 79; RESP 15; TEMP 100; O2SAT 96
[2024-09-28] MEDS: HYDROcodone/acetaminophen 10/325mg tab PO PRN (19:43)
[2024-09-28 20:00] VITALS: RESP 15; O2SAT 96
[2024-09-28 22:00] VITALS: BP 138/59; PULSE 81; RESP 16; TEMP 99.2; O2SAT 92
[2024-09-29 05:00] VITALS: BP 114/69; PULSE 86; RESP 18; TEMP 99.6; O2SAT 90
[2024-09-29 05:49] LABS: BASOPHILS % (AUTO) 0.1 % (0-1); EOSINOPHILS # (AUTO) 0.1 X10'3 (0-0.9); EOSINOPHILS % (AUTO) 3.3 % (0-6); HEMATOCRIT 22.5 % (42.0-52.0); HEMOGLOBIN 7.9 g/dl (14.0-17.9); LYMPHOCYTES # (AUTO) 0.8 X10'3 (1.1-4.8); LYMPHOCYTES % (AUTO) 21.9 % (21-51); MEAN CORPUSCULAR HEMOGLOBIN 30.4 PG (27.0-31.0); MEAN CORPUSCULAR HGB CONC 35.1 g/dL (33.0-36.5); MEAN CORPUSCULAR VOLUME 86.5 FL (78-98); MEAN PLATELET VOLUME 7.1 FL (7.4-10.4); MONOCYTES # (AUTO) 0.3 X10'3 (0-0.9); NEUTROPHILS # (AUTO) 2.4 X10'3 (1.8-7.7); NEUTROPHILS % (AUTO) 66.7 % (42-75); PLATELET COUNT 101 X10'3 (140-440); RED CELL DISTRIBUTION WIDTH 15.9 % (11.5-14.5); WHITE BLOOD COUNT 3.6 X10'3 (4.5-11.0)
[2024-09-29 06:10] LABS: ALANINE AMINOTRANSFERASE 16 U/L (12-78); ALBUMIN 2.3 G/DL (3.4-5.0); ALBUMIN/GLOBULIN RATIO 0.7 (1.1-1.5); ALKALINE PHOSPHATASE 89 IU/L (46-116); ANION GAP 5 (8-16); ASPARTATE AMINO TRANSFERASE 52 U/L (10-37); BILIRUBIN,TOTAL 0.9 MG/DL (0.1-1.0); BLOOD UREA NITROGEN 17 MG/DL (7-18); BUN/CREATININE RATIO 11.5 (10.0-20.0); CALCIUM 7.7 MG/DL (8.5-10.1); CHLORIDE 98 MMOL/L (99-107); CREATININE 1.48 MG/DL (0.60-1.10); GLUCOSE 129 MG/DL (70-104); MAGNESIUM 1.6 MG/DL (1.5-2.4); POTASSIUM 3.7 MMOL/L (3.5-5.1); SODIUM 132 MMOL/L (135-145); TOTAL CARBON DIOXIDE 29.2 MMOL/L (24-32); TOTAL PROTEIN 5.8 G/DL (6.4-8.2); eCRCL 37 ML/MIN; eGFR 48 ML/MIN
[2024-09-29 06:14] LABS: % IRON SATURATION 9 % (11-46); IRON 11 UG/DL (53-167); TOTAL IRON BINDING CAPACITY 117 UG/DL (259-388)
[2024-09-29 08:30] VITALS: RESP 18; O2SAT 93
[2024-09-29] MEDS: normal saline 1000ml 1,000 ML IV SCH (08:37)
[2024-09-29] MEDS ORDERED: D5-1/2NS w/20 mEq potassium per 1000ml IV SCH (08:40)
[2024-09-29] MEDS: iron sucrose complex injection 200 MG in normal saline 100ml IV soln 100 ML IV SCH (09:10)
[2024-09-29] MEDS: potassium CL 20mEq in D5-1/2NS 1,000 ML IV SCH (09:10)
[2024-09-29 09:15] LABS: ABSOLUTE RETICS # 33700 /CUMM (23000-93000); RETICULOCYTE % (AUTO) 1.3 % (0.5-1.5)
[2024-09-29] MEDS: PEG 3350/Na sulf,bicarb,Cl/KCl oral sol 4 liter bottle PO ONE (09:15)
[2024-09-29 09:33] LABS: FERRITIN 949 NG/ML (26-388)
[2024-09-29 10:00] VITALS: BP 112/70; PULSE 92; RESP 16; TEMP 100.1; O2SAT 93
[2024-09-29] MEDS: piperacillin/tazo 3.375gm/50ml 50 ML IV SCH (16:11)
[2024-09-29 18:00] VITALS: BP 120/76; PULSE 96; RESP 18; TEMP 99.7; O2SAT 93
[2024-09-29] MEDS: guaiFENesin 200 MG/10 ML oral syrup UD cup PO PRN (19:52)
[2024-09-29 20:00] VITALS: RESP 18; O2SAT 93
[2024-09-29 22:00] VITALS: BP 112/65; PULSE 105; RESP 28; TEMP 101.3; O2SAT 91
[2024-09-29] MEDS: acetaminophen 325mg tablet PO PRN (23:00)
[2024-09-30] VITALS (13 sets, daily range): BP systolic 69–115; BP diastolic 45–81; PULSE 55–71; RESP 12–20; TEMP 97.2–97.9; O2SAT 93–98
[2024-09-30] MEDS: normal saline 500ml IV soln 500 ML IV SCH (05:42)
[2024-09-30 05:58] LABS: BASOPHILS % (AUTO) 0.3 % (0-1); EOSINOPHILS # (AUTO) 0.2 X10'3 (0-0.9); EOSINOPHILS % (AUTO) 5.2 % (0-6); HEMATOCRIT 22.7 % (42.0-52.0); HEMOGLOBIN 7.8 g/dl (14.0-17.9); LYMPHOCYTES # (AUTO) 0.8 X10'3 (1.1-4.8); LYMPHOCYTES % (AUTO) 16.6 % (21-51); MEAN CORPUSCULAR HEMOGLOBIN 29.9 PG (27.0-31.0); MEAN CORPUSCULAR HGB CONC 34.3 g/dL (33.0-36.5); MEAN CORPUSCULAR VOLUME 87.1 FL (78-98); MEAN PLATELET VOLUME 7.5 FL (7.4-10.4); MONOCYTES # (AUTO) 0.5 X10'3 (0-0.9); MONOCYTES % (AUTO) 10.2 % (2-12); NEUTROPHILS # (AUTO) 3.2 X10'3 (1.8-7.7); NEUTROPHILS % (AUTO) 67.7 % (42-75); PLATELET COUNT 110 X10'3 (140-440); RED BLOOD COUNT 2.61 X10'6 (4.70-6.10); RED CELL DISTRIBUTION WIDTH 15.4 % (11.5-14.5); WHITE BLOOD COUNT 4.8 X10'3 (4.5-11.0)
[2024-09-30 06:21] LABS: ALANINE AMINOTRANSFERASE 14 U/L (12-78); ALBUMIN 2.3 G/DL (3.4-5.0); ALBUMIN/GLOBULIN RATIO 0.7 (1.1-1.5); ALKALINE PHOSPHATASE 90 IU/L (46-116); ANION GAP 9 (8-16); ASPARTATE AMINO TRANSFERASE 34 U/L (10-37); BILIRUBIN,TOTAL 1.1 MG/DL (0.1-1.0); BLOOD UREA NITROGEN 14 MG/DL (7-18); BUN/CREATININE RATIO 9.5 (10.0-20.0); CALCIUM 7.7 MG/DL (8.5-10.1); CHLORIDE 100 MMOL/L (99-107); CREATININE 1.48 MG/DL (0.60-1.10); GLUCOSE 71 MG/DL (70-104); MAGNESIUM 1.7 MG/DL (1.5-2.4); POTASSIUM 3.5 MMOL/L (3.5-5.1); SODIUM 137 MMOL/L (135-145); TOTAL PROTEIN 5.8 G/DL (6.4-8.2); eCRCL 37 ML/MIN; eGFR 48 ML/MIN
[2024-09-30] MEDS: famotidine/PF 10 mg/ml inj IV SCH (07:38)
[2024-09-30] MEDS ORDERED: fentaNYL/PF 50MCG/1 ML 2ML syringe ONE (13:23)
[2024-09-30] MEDS ORDERED: LIDOcaine 2% Viscous 15ml cup ONE (13:23)
[2024-09-30] MEDS ORDERED: MIDAZolam 1 MG/ML 5ML VIAL ONE (13:23)
[2024-09-30] MEDS ORDERED: simethicone 40mg/0.6ml oral drops 30ml ONE (14:06)
[2024-09-30] MEDS: psyllium seed 5.8 gm packet (sugar-free) PO SCH (20:18)
[2024-10-01] VITALS (7 sets, daily range): BP systolic 107–126; BP diastolic 54–71; PULSE 65–97; RESP 14–18; TEMP 97.8–98.4; O2SAT 93–96
[2024-10-01 05:49] LABS: BASOPHILS % (AUTO) 0.3 % (0-1); EOSINOPHILS # (AUTO) 0.5 X10'3 (0-0.9); EOSINOPHILS % (AUTO) 13.7 % (0-6); HEMATOCRIT 23.1 % (42.0-52.0); HEMOGLOBIN 7.8 g/dl (14.0-17.9); LYMPHOCYTES # (AUTO) 0.6 X10'3 (1.1-4.8); LYMPHOCYTES % (AUTO) 15.5 % (21-51); MEAN CORPUSCULAR HEMOGLOBIN 29.4 PG (27.0-31.0); MEAN CORPUSCULAR VOLUME 86.4 FL (78-98); MEAN PLATELET VOLUME 7.4 FL (7.4-10.4); MONOCYTES # (AUTO) 0.2 X10'3 (0-0.9); MONOCYTES % (AUTO) 6.2 % (2-12); NEUTROPHILS # (AUTO) 2.6 X10'3 (1.8-7.7); NEUTROPHILS % (AUTO) 64.3 % (42-75); PLATELET COUNT 112 X10'3 (140-440); RED BLOOD COUNT 2.67 X10'6 (4.70-6.10); RED CELL DISTRIBUTION WIDTH 15.5 % (11.5-14.5)
[2024-10-01 06:07] LABS: ALANINE AMINOTRANSFERASE 9 U/L (12-78); ALBUMIN 2.1 G/DL (3.4-5.0); ALBUMIN/GLOBULIN RATIO 0.6 (1.1-1.5); ALKALINE PHOSPHATASE 73 IU/L (46-116); ANION GAP 7 (8-16); ASPARTATE AMINO TRANSFERASE 29 U/L (10-37); BILIRUBIN,TOTAL 0.7 MG/DL (0.1-1.0); BLOOD UREA NITROGEN 12 MG/DL (7-18); BUN/CREATININE RATIO 9.3 (10.0-20.0); CALCIUM 7.7 MG/DL (8.5-10.1); CHLORIDE 104 MMOL/L (99-107); CREATININE 1.29 MG/DL (0.60-1.10); GLUCOSE 104 MG/DL (70-104); MAGNESIUM 1.4 MG/DL (1.5-2.4); POTASSIUM 3.8 MMOL/L (3.5-5.1); SODIUM 134 MMOL/L (135-145); TOTAL PROTEIN 5.5 G/DL (6.4-8.2); eCRCL 43 ML/MIN; eGFR 57 ML/MIN
[2024-10-01] MEDS ORDERED: potassium Cl 40MEQ/1/2NS 520ml 520 ML IV PRN (11:20)
[2024-10-01] MEDS ORDERED: magnesium sulf-water 2g/50mL 50 ML IV PRN (11:20)
[2024-10-01] MEDS ORDERED: potassium Cl 20 mEq SR tablet PO PRN ×2 (11:20)
[2024-10-01] MEDS ORDERED: famotidine 20mg tablet PO SCH (13:29)
[2024-10-01] MEDS: magnesium Cl slow-release 64mg tablet PO PRN (16:26)
[2024-10-01] MEDS: K and/or MAG REPLACEMENT MC SCH (20:00)
[2024-10-02] VITALS (7 sets, daily range): BP systolic 95–128; BP diastolic 63–82; PULSE 69–85; RESP 16–19; TEMP 98.3–98.6; O2SAT 93–97
[2024-10-02 05:02] LABS: BASOPHILS % (AUTO) 0.3 % (0-1); EOSINOPHILS # (AUTO) 0.8 X10'3 (0-0.9); EOSINOPHILS % (AUTO) 23.4 % (0-6); HEMATOCRIT 23.2 % (42.0-52.0); LYMPHOCYTES # (AUTO) 0.9 X10'3 (1.1-4.8); LYMPHOCYTES % (AUTO) 25.5 % (21-51); MEAN CORPUSCULAR HEMOGLOBIN 29.9 PG (27.0-31.0); MEAN CORPUSCULAR HGB CONC 34.6 g/dL (33.0-36.5); MEAN CORPUSCULAR VOLUME 86.3 FL (78-98); MEAN PLATELET VOLUME 7.4 FL (7.4-10.4); MONOCYTES # (AUTO) 0.3 X10'3 (0-0.9); MONOCYTES % (AUTO) 7.7 % (2-12); NEUTROPHILS # (AUTO) 1.5 X10'3 (1.8-7.7); NEUTROPHILS % (AUTO) 43.1 % (42-75); PLATELET COUNT 134 X10'3 (140-440); RED BLOOD COUNT 2.68 X10'6 (4.70-6.10); WHITE BLOOD COUNT 3.5 X10'3 (4.5-11.0)
[2024-10-02 05:19] LABS: ALANINE AMINOTRANSFERASE 14 U/L (12-78); ALBUMIN/GLOBULIN RATIO 0.5 (1.1-1.5); ALKALINE PHOSPHATASE 81 IU/L (46-116); ANION GAP 3 (8-16); ASPARTATE AMINO TRANSFERASE 21 U/L (10-37); BILIRUBIN,TOTAL 0.6 MG/DL (0.1-1.0); BLOOD UREA NITROGEN 6 MG/DL (7-18); CALCIUM 7.9 MG/DL (8.5-10.1); CHLORIDE 110 MMOL/L (99-107); GLUCOSE 98 MG/DL (70-104); MAGNESIUM 1.5 MG/DL (1.5-2.4); POTASSIUM 4.3 MMOL/L (3.5-5.1); SODIUM 140 MMOL/L (135-145); TOTAL CARBON DIOXIDE 26.7 MMOL/L (24-32); TOTAL PROTEIN 5.7 G/DL (6.4-8.2); eCRCL 46 ML/MIN; eGFR 62 ML/MIN
[2024-10-02 05:42] LABS: TOTAL CELLS COUNTED 100
[2024-10-02] MEDS: lactose-reduced food (Ensure Enlive) - 237ml bottle PO SCH (09:17)
[2024-10-03] VITALS (8 sets, daily range): BP systolic 123–139; BP diastolic 74–88; PULSE 62–69; RESP 14–19; TEMP 97–98.3; O2SAT 96–98
[2024-10-03] MEDS: famotidine/PF 10 mg/ml inj IV SCH (09:54)
[2024-10-03] MEDS: mirtazapine 15mg tablet PO SCH (20:37)
[2024-10-04 01:41] VITALS: O2SAT 98
[2024-10-04 06:00] VITALS: BP 102/73; PULSE 81; RESP 16; TEMP 98; O2SAT 99
[2024-10-04 06:06] LABS: BASOPHILS % (AUTO) 0.4 % (0-1); HEMATOCRIT 25.2 % (42.0-52.0); HEMOGLOBIN 8.5 g/dl (14.0-17.9); LYMPHOCYTES # (AUTO) 1.3 X10'3 (1.1-4.8); LYMPHOCYTES % (AUTO) 29.8 % (21-51); MEAN CORPUSCULAR HEMOGLOBIN 29.3 PG (27.0-31.0); MEAN CORPUSCULAR HGB CONC 33.7 g/dL (33.0-36.5); MEAN CORPUSCULAR VOLUME 86.8 FL (78-98); MONOCYTES # (AUTO) 0.4 X10'3 (0-0.9); MONOCYTES % (AUTO) 9.6 % (2-12); NEUTROPHILS # (AUTO) 1.7 X10'3 (1.8-7.7); NEUTROPHILS % (AUTO) 38.2 % (42-75); PLATELET COUNT 163 X10'3 (140-440); RED CELL DISTRIBUTION WIDTH 16.1 % (11.5-14.5); WHITE BLOOD COUNT 4.3 X10'3 (4.5-11.0)
[2024-10-04 06:21] LABS: ALANINE AMINOTRANSFERASE 12 U/L (12-78); ALBUMIN 2.2 G/DL (3.4-5.0); ALBUMIN/GLOBULIN RATIO 0.6 (1.1-1.5); ALKALINE PHOSPHATASE 84 IU/L (46-116); ANION GAP 6 (8-16); ASPARTATE AMINO TRANSFERASE 21 U/L (10-37); BILIRUBIN,TOTAL 0.5 MG/DL (0.1-1.0); BLOOD UREA NITROGEN 6 MG/DL (7-18); BUN/CREATININE RATIO 6.3 (10.0-20.0); CALCIUM 8.1 MG/DL (8.5-10.1); CHLORIDE 106 MMOL/L (99-107); CREATININE 0.96 MG/DL (0.60-1.10); GLUCOSE 120 MG/DL (70-104); POTASSIUM 4.5 MMOL/L (3.5-5.1); SODIUM 135 MMOL/L (135-145); TOTAL CARBON DIOXIDE 23.5 MMOL/L (24-32); TOTAL PROTEIN 5.8 G/DL (6.4-8.2); eCRCL 57 ML/MIN; eGFR 80 ML/MIN
[2024-10-04 06:22] LABS: % IRON SATURATION 82 % (11-46); IRON 74 UG/DL (53-167); TOTAL IRON BINDING CAPACITY 90 UG/DL (259-388)
[2024-10-04 09:22] LABS: MAGNESIUM 1.3 MG/DL (1.5-2.4)
[2024-10-04] MEDS: magnesium sulf-water 4G/100mL 100 ML IV PRN (09:52)
[2024-10-04 10:21] VITALS: BP 113/78; PULSE 80; RESP 16; TEMP 97.9; O2SAT 97
[2024-10-04 18:00] VITALS: BP 99/71; PULSE 77; RESP 17; TEMP 97.9; O2SAT 96
[2024-10-04] MEDS: magnesium Cl slow-release 64mg tablet PO PRN (20:48)
[2024-10-04 22:00] VITALS: BP 125/61; PULSE 76; RESP 14; TEMP 98.3; O2SAT 98
[2024-10-05 06:00] VITALS: BP 112/77; PULSE 84; RESP 14; TEMP 98.2; O2SAT 98
[2024-10-05 06:16] LABS: BASOPHILS % (AUTO) 0.4 % (0-1); EOSINOPHILS # (AUTO) 0.7 X10'3 (0-0.9); EOSINOPHILS % (AUTO) 16.9 % (0-6); HEMATOCRIT 25.4 % (42.0-52.0); HEMOGLOBIN 8.7 g/dl (14.0-17.9); LYMPHOCYTES # (AUTO) 1.2 X10'3 (1.1-4.8); LYMPHOCYTES % (AUTO) 31.1 % (21-51); MEAN CORPUSCULAR HEMOGLOBIN 29.4 PG (27.0-31.0); MEAN CORPUSCULAR HGB CONC 34.2 g/dL (33.0-36.5); MEAN CORPUSCULAR VOLUME 85.9 FL (78-98); MEAN PLATELET VOLUME 7.2 FL (7.4-10.4); MONOCYTES # (AUTO) 0.4 X10'3 (0-0.9); MONOCYTES % (AUTO) 9.5 % (2-12); NEUTROPHILS # (AUTO) 1.7 X10'3 (1.8-7.7); NEUTROPHILS % (AUTO) 42.1 % (42-75); PLATELET COUNT 175 X10'3 (140-440); RED BLOOD COUNT 2.96 X10'6 (4.70-6.10); RED CELL DISTRIBUTION WIDTH 15.9 % (11.5-14.5)
[2024-10-05 06:17] LABS: ALANINE AMINOTRANSFERASE 6 U/L (12-78); ALBUMIN 2.2 G/DL (3.4-5.0); ALBUMIN/GLOBULIN RATIO 0.6 (1.1-1.5); ALKALINE PHOSPHATASE 82 IU/L (46-116); ANION GAP 7 (8-16); ASPARTATE AMINO TRANSFERASE 21 U/L (10-37); BILIRUBIN,TOTAL 0.5 MG/DL (0.1-1.0); BLOOD UREA NITROGEN 7 MG/DL (7-18); CALCIUM 8.2 MG/DL (8.5-10.1); CHLORIDE 101 MMOL/L (99-107); GLUCOSE 135 MG/DL (70-104); POTASSIUM 4.9 MMOL/L (3.5-5.1); SODIUM 130 MMOL/L (135-145); TOTAL CARBON DIOXIDE 22.2 MMOL/L (24-32); TOTAL PROTEIN 5.9 G/DL (6.4-8.2); eCRCL 55 ML/MIN; eGFR 76 ML/MIN
[2024-10-05 08:00] VITALS: RESP 18; O2SAT 97
[2024-10-05] MEDS ORDERED: psyllium 5.8g sugar-free pkt PO (09:51)
[2024-10-05] MEDS ORDERED: MIRT-87 PO (09:51)
[2024-10-05 10:00] VITALS: BP 92/76; PULSE 97; RESP 16; TEMP 97.5; O2SAT 98
== END 2024-10-05 17:45 | disposition home or self-care (01) | DRG 249 ==
LOC: ER 14:04 → ED HOLD 17:22 → EDBEDREQTM 20:37 → SUR 3N 21:20
PROVIDERS: ADMIT Family Medicine; ATTEND Family Medicine
PROC: 0DBE8ZX Excision of Large Intestine, Via Natural or Artificial Opening Endoscopic, Diagnostic (ICD-10-PCS; principal; 2024-09-30)
PROC: 0DB98ZX Excision of Duodenum, Via Natural or Artificial Opening Endoscopic, Diagnostic (ICD-10-PCS; 2024-09-30)
DX: K52.9 Noninfective gastroenteritis and colitis, unspecified (principal); N17.0 Acute kidney failure with tubular necrosis; E43 Unspecified severe protein-calorie malnutrition; E11.649 Type 2 diabetes mellitus with hypoglycemia without coma; E11.22 Type 2 diabetes mellitus with diabetic chronic kidney disease; D63.1 Anemia in chronic kidney disease; E86.0 Dehydration; M51.369 Other intervertebral disc degeneration, lumbar region without mention of lumbar back pain or lower extremity pain; Z66 Do not resuscitate; N18.9 Chronic kidney disease, unspecified; D50.9 Iron deficiency anemia, unspecified; Z85.528 Personal history of other malignant neoplasm of kidney; Z90.5 Acquired absence of kidney; Z83.3 Family history of diabetes mellitus; Z59.00 Homelessness unspecified; Z68.1 Body mass index [BMI] 19.9 or less, adult
CPT/HCPCS: 36415; 43239; 45380; 71045; 74176; 80053; 81001; 82728; 82948; 83540; 83550; 83605; 83690; 83735; 83880; 84466; 84484; 85007; 85025; 85027; 85045; 87040; 87081; 92508; 92616; 93005; 97116; 97161; 97530; 97535; 99152; 99153; 99285; A4615; A4620; G0378; J1756; J2250; J2543; J3010; J3475; J3480; J3490; J7030; J7040; J7070

== ENCOUNTER 2024-11-17 18:25 | Emergency (ER) | payer MEDICAID ==
[~2024-11-17] VITALS: Ht 172.7 cm; Wt 55.2 kg
[~2024-11-17 18:25] MED LIST changes: +MIRT-87 PO; -PANT-47 PO; +psyllium 5.8g sugar-free pkt PO
[2024-11-17 18:35] VITALS: BP 91/49; PULSE 67; RESP 14; TEMP 98; O2SAT 100
[2024-11-17] MEDS ORDERED: PERM60CR27 TOP (20:58)
[2024-11-17] MEDS: Permethrin Cream 60gm TP ONE (21:21)
== END 2024-11-17 21:44 | disposition home or self-care (01) ==
LOC: ER 18:26
DX: S60.562A Insect bite (nonvenomous) of left hand, initial encounter (principal); S60.561A Insect bite (nonvenomous) of right hand, initial encounter; N18.9 Chronic kidney disease, unspecified; W57.XXXA Bitten or stung by nonvenomous insect and other nonvenomous arthropods, initial encounter; Y93.89 Activity, other specified; Y92.89 Other specified places as the place of occurrence of the external cause; Y99.8 Other external cause status
CPT/HCPCS: 99282

== ENCOUNTER 2024-12-04 15:18 | Emergency (ER) | payer MEDICAID ==
[~2024-12-04] VITALS: Ht 167.6 cm; Wt 54.5 kg
[~2024-12-04 15:18] MED LIST changes: +PERM60CR27 TOP
[2024-12-04 17:08] VITALS: PULSE 77; RESP 18; O2SAT 94
[2024-12-04] MEDS ORDERED: PERM60CR27 TP (17:42)
[2024-12-04 17:59] VITALS: TEMP 98
== END 2024-12-04 18:01 | disposition home or self-care (01) ==
LOC: ER 15:18
DX: B85.1 Pediculosis due to Pediculus humanus corporis (principal); N18.9 Chronic kidney disease, unspecified
CPT/HCPCS: 99282

== ENCOUNTER 2025-01-14 13:04 | Inpatient (IN) | payer MEDICAID ==
[~2025-01-14] VITALS: Ht 167.6 cm; Wt 53.7 kg
[~2025-01-14 13:04] MED LIST changes: -PERM60CR27 TOP
--- NOTE | 2025-01-14 14:39 | ELECTROCARDIOGRAPH REPORT ---
[facility] Test Date: 2025-01-14 Test Time: 14:36:50 Pat Name: ROBBY MAO Department: EMERGENCY ROOM Room: Gender: M Attraction Attendant: HELIO : 1965 Requested By: LAZARO BUTCHER Order Number: [id number] Reading MD: Dr. Eyad Carr Measurements Intervals Center Rate: 83 P: 0 NH: 0 QRS: -83 QRSD: 131 T: 53 QT: 320 QTc: 376 Interpretive Statements Atrial fibrillation Nonspecific IVCD with LAD Artifact in lead(s) I,II,III,aVR,aVL,aVF,V1,V2,V3,V4,V5,V6 Electronically Signed On 01-14-2025 14:56:[address] Eyad Carr Please click the below link to view image of tracing.
[2025-01-14] MEDS: normal saline 1000ml 1,000 ML IV SCH ×2 (15:09→18:40)
[2025-01-14 15:19] LABS: BASOPHILS % (AUTO) 0.4 % (0-1); EOSINOPHILS # (AUTO) 0.1 X10'3 (0-0.9); EOSINOPHILS % (AUTO) 4.8 % (0-6); HEMATOCRIT 32.1 % (42.0-52.0); HEMOGLOBIN 10.7 g/dl (14.0-17.9); LYMPHOCYTES # (AUTO) 0.7 X10'3 (1.1-4.8); LYMPHOCYTES % (AUTO) 30.9 % (21-51); MEAN CORPUSCULAR HEMOGLOBIN 31.3 PG (27.0-31.0); MEAN CORPUSCULAR HGB CONC 33.5 g/dL (33.0-36.5); MEAN CORPUSCULAR VOLUME 93.4 FL (78-98); MEAN PLATELET VOLUME 7.3 FL (7.4-10.4); MONOCYTES # (AUTO) 0.3 X10'3 (0-0.9); MONOCYTES % (AUTO) 12.6 % (2-12); NEUTROPHILS # (AUTO) 1.1 X10'3 (1.8-7.7); NEUTROPHILS % (AUTO) 51.3 % (42-75); PLATELET COUNT 100 X10'3 (140-440); RED BLOOD COUNT 3.43 X10'6 (4.70-6.10); RED CELL DISTRIBUTION WIDTH 14.2 % (11.5-14.5); WHITE BLOOD COUNT 2.2 X10'3 (4.5-11.0)
[2025-01-14 15:29] LABS: C DIFF ANTIGEN NEGATIVE (NEGATIVE); C DIFF SPECIMEN=DIARRHEA? ACCEPTABLE; C DIFFICILE TOXINS A&B NEGATIVE (Neg)
[2025-01-14 15:34] LABS: OCCULT BLOOD STOOL NEGATIVE (Neg)
[2025-01-14 15:37] LABS: ALANINE AMINOTRANSFERASE 56 U/L (12-78); ALBUMIN 3.1 G/DL (3.4-5.0); ALBUMIN/GLOBULIN RATIO 0.8 (1.1-1.5); ALKALINE PHOSPHATASE 102 IU/L (46-116); ANION GAP 13 (8-16); ASPARTATE AMINO TRANSFERASE 188 U/L (10-37); BILIRUBIN,TOTAL 0.5 MG/DL (0.1-1.0); BLOOD UREA NITROGEN 46 MG/DL (7-18); CALCIUM 8.1 MG/DL (8.5-10.1); CHLORIDE 108 MMOL/L (99-107); CREATININE 2.55 MG/DL (0.60-1.10); GLUCOSE 110 MG/DL (70-104); LIPASE 27 U/L (16-77); POTASSIUM 4.5 MMOL/L (3.5-5.1); SODIUM 139 MMOL/L (135-145); TOTAL CARBON DIOXIDE 17.9 MMOL/L (24-32); TOTAL PROTEIN 6.8 G/DL (6.4-8.2); eCRCL 26 ML/MIN; eGFR 26 ML/MIN
[2025-01-14 16:27] LABS: TOTAL CELLS COUNTED 100
[2025-01-14 16:28] LABS: PLATELET ESTIMATE DECREASED
--- NOTE | 2025-01-14 17:29 | RADIOLOGY REPORT ---
Indication: PAIN/DIARHHEA, NO CONTRAST Technique: CT axial images of the abdomen and pelvis are obtained without contrast. Coronal and sagit sayra reformats were obtained. Radiation Dose Information: CTDI volume is 16.9 mGy. Dose-length product is 184 mGy*cm Comparison: CT CT ABDOMEN PELVIS on DOS: 09/27/24 FINDINGS: There is limited interpretation of the abdomen and pelvis without administration of intravenous contr ast. Lung bases demonstrate left upper and lower lobe tree-in-bud nodularity most pronounced within the le ft lower lobe. Adrenal glands, spleen pancreas unremarkable in shape. Cholelithiasis. Liver unremarkable in shape. Suprarenal IVC filter. Left nephrectomy. Right kidney demonstrates no hydronephrosis, nephrolithiasis. Stomach moderately distended. Small bowel loops are moderately distended. Fluid distention large bowel loops. No secondary signs for appendicitis are present. Abdominal aortic atherosclerotic disease, tortuosity. Bladder is partially distended. No free pelvic fluid. No inguinal lymphadenopathy. Advanced lumbar degenerative disc disease with multilevel endplate irregularity. Moderate to advanced lumbar facet hypertrophic changes. IMPRESSION: 1. Fluid distention of the large bowel loops as well as diffuse moderate distention of the small nilda l loops. This could be secondary to diarrheal state, enterocolitis. Correlate clinically. 2. Left lung tree-in-bud nodularity. Differential considerations include atypical infection, bronchio litis, aspiration, miliary spread carcinoma. 3. Cholelithiasis. 4. Left nephrectomy. 5. Ivc filter in suprarenal location. 6. Advanced lumbar endplate, likely secondary to degenerative changes. If there is concern for infec tion / osteomyelitis, recommend obtaining MRI lumbar spine with and without contrast. 7. Other findings as described.
--- NOTE | 2025-01-14 17:33 | Physician Documentation ---
History of Present Illness General Chief Complaint: Weakness Stated Complaint: LOW BP/WEAKNESS Time Seen by MD: 16:52 Primary Medical Doctor: NONE Mode of Arrival: EMS History of Present Illness Initial Comments Brought in from the [place] for evaluation of diarrhea, weakness and fatigue. Reportedly patient has had a prior history of renal cancer and nephrectomy. Medication Reconciliation Allergies: Coded Allergies: No Known Allergies (Unverified , 11/17/24) Scheduled Mirtazapine (Mirtazapine), 15 MG PO HS [psyllium 5.8g sugar-free pkt], 1 PACKET PO HS Past Medical History Past Medical History: *GI/HEPATOBILIARY*, Anemia, *RENAL/*, Chronic Kidney Disease, *CANCER* Past Surgical History: other Other Past Surgical History: Nephrectomy Alcohol Use: None Drug Use: none Lives In: Home Review of Systems Constitutional: Denies: fever, chills GI: Reports: abdominal pain, nausea, vomiting, diarrhea Physical Exam Physical Exam Vital Signs: RN Vital Signs have been reviewed: Yes, Temperature: 98.4, Source: Oral, Heart Rate: 78, Respiratory Rate: 19, BP: 122/68, Pulse Oximetry: 98, Weight: 60.000 Oxygen Flow Rate: 0 General Appearance: alert, thin Head: normal inspection Face: normal inspection Pupils/EOM/Fundus: PERRLA Neck: non-tender Respiratory: lungs clear Chest: no accessory muscle use Cardiovascular: tachycardia Back: normal inspection Extremities: normal range of motion Neurologic: oriented x4, cutting machine operator helper II-XII nml as tested Motor / Sensory: no motor deficit, no sensory deficit Psychiatric: normal mood/affect Skin: normal color, other (Poor skin turgor) Progress Results/Orders Results/Orders Orders - LAZARO BUTCHER Cult Stool (Enteric Pathogens) (01/14/25 14:20) Wrights Stain For Stool Wbcs (01/14/25 14:20) Electrocardiogram (01/14/25 ) Normal Saline 1000ml (Sodium Chloride 10 (01/14/25 14:20) Completed Orders - LAZARO BUTCHER Occult Bld Stool (01/14/25 14:20) C Diff Toxin (01/14/25 14:20) LA (01/14/25 14:20) Electrocardiogram (01/14/25 ) Medications Received in ER Medications (Trade) Dose Ordered Sig/Sri Route PRN Reason Start Time Stop Time Status Last Admin Dose Admin Sodium Chloride 1,000 ml @ 200 mls/hr Q5H IV 01/14/25 14:20 01/14/25 15:09 200 MLS/HR Vital Signs 01/14/25 01/14/25 01/14/25 13:14 14:30 16:02 Temp 98.4 Pulse 82 78 Resp 24 19 B/P (MAP) 93/56 122/68 (86) Pulse Ox 98 O2 Flow Rate 0 Laboratory Tests Test 01/14/25 14:05 01/14/25 14:53 Stool Occult Blood Negative Clostridium Difficile Toxin A & B Negative Clostridium difficile Antigen Negative White Blood Count 2.2 L Red Blood Count 3.43 L Hemoglobin 10.7 L Hematocrit 32.1 L Mean Corpuscular Volume 93.4 Mean Corpuscular Hemoglobin 31.3 H Mean Corpuscular Hemoglobin Concent 33.5 Red Cell Distribution Width 14.2 Platelet Count 100 L Mean Platelet Volume 7.3 L Neutrophils (%) (Auto) 51.3 Lymphocytes (%) (Auto) 30.9 Monocytes (%) (Auto) 12.6 H Eosinophils (%) (Auto) 4.8 Basophils (%) (Auto) 0.4 Neutrophils # (Auto) 1.1 L Lymphocytes # (Auto) 0.7 L Monocytes # (Auto) 0.3 Eosinophils # (Auto) 0.1 Basophils # (Auto) 0.0 CBC Comment Differential Total Cells Counted 100 Neutrophils % (Manual) 53.0 Lymphocytes % (Manual) 30.0 Monocytes % (Manual) 12.0 Eosinophils % (Manual) 5.0 Platelet Estimate Decreased Red Blood Cell Morphology Normal Basophilic Stippling Sodium Level 139 Potassium Level 4.5 Chloride Level 108 H Carbon Dioxide Level 17.9 L Anion Gap 13 Blood Urea Nitrogen 46 H Creatinine 2.55 H Estimated GFR/1.73 m2 26 BUN/Creatinine Ratio 18.0 Glucose Level 110 H Lactic Acid Level 1.6 Calcium Level 8.1 L Total Bilirubin 0.5 Aspartate Amino Transf (AST/SGOT) 188 H Alanine Aminotransferase (ALT/SGPT) 56 Alkaline Phosphatase 102 Total Protein 6.8 Albumin 3.1 L Globulin 3.7 Albumin/Globulin Ratio 0.8 L Lipase 27 Chemistry Comments Medical Decision Making Differential Diagnosis Patient brought in by EMS from the admission for evaluation diarrhea and weakness. Noted to have pancytopenia and JUAN ALBERTO. Receiving gentle fluid hydration in the emergency department. Patient did benefit from inpatient admission for further workup and evaluation the differentials include him in either of the two bone marrow problems, cancers, nutritional deficiencies, infectious Disease and autoimmune conditions.. Departure Disposition: ADMITTED INPATIENT Admitted to Inpatient Unit: to hospitalist Admission Level of Care: Med/Surg Impression: Primary Impression: Pancytopenia Additional Impressions: JUAN ALBERTO (acute kidney injury) Diarrhea Qualified Codes: R19.7 - Diarrhea, unspecified Sheltered homelessness Referrals: NO PRIMARY CARE PROVIDER (PCP) Signature Scribe Signature: . Attestation: . LAZARO BUTCHER PAC Jan 14, 2025 17:33
--- NOTE | 2025-01-14 17:56 | HISTORY AND PHYSICAL ---
History & Physical Providers to CC ~ History of Present Illness Reason for Admit\Complaint: Weak History of Present Illness Patient is a 59 year old [place] [facility] and is hanging around a gas station during the day . Staff at gas station found him slumped over on a chair and called the paramedics. Patient reports having diarrhoea for two weeks and productive cough for one week.On evaluation in the ER , patient is noted to have elevated Cr. , was noted to be febrile in the ER and he is being admitted for further treatment of his JUAN ALBERTO and work up of fever and diarrhea. Allergies: Coded Allergies: No Known Allergies (Unverified , 11/17/24) Home Medications Home Medications Active [psyllium 5.8g sugar-free pkt] 1 PACKET Packet 1 Packet PO HS Mirtazapine 15 Mg Tablet 15 Mg PO HS Past Medical History Past Medical History CKD Past Surgical History Surgical History Comment Left Nephrectomy IVC filter Family History Family History: FH: diabetes mellitus FATHER Past Social History Social History Comment Patient is living in a homeless [facility] Health Maintenance Health Maintenance Patient reports he is not current on his immunizations. ROS ROS All other systems are reviewed and are negative except for as mentioned in HPI. Exam Vitals: Vital Signs Date Time Temp Pulse Resp B/P (MAP) Pulse Ox O2 Delivery O2 Flow Rate FiO2 01/14/25 16:02 78 19 122/68 (86) 01/14/25 13:14 98.4 98 0 General: Awake cooperative in no acute distress HEENT: Normocephalic atraumatic pupils round reactive to light and accommodation, extraocular movements intact, sclera anicteric, conjunctiva pinkish, moist oral mucosa, no rash or ulcers. Neck: Supple, no JVD, trachea midline, no lymphadenopathy. Chest: Decreased coarse breath sounds Cardiovascular: Regular rate rhythm, no murmur or gallop rub Abdomen: Soft, nontender, no organomegaly Extremities: No cyanosis clubbing or edema Central Nervous System: Nonfocal. Moves all four extremities Musculoskeletal: No joint swelling or deformities Skin: No rash or ulcers noted. Diagnostic Data Last Recorded Lab Results: 01/14/25 1453 01/14/25 1453 Additional Plan 59 years old male who was found slumped over in a chair at a gas station. 1. JUAN ALBERTO/CKD: Patient has had a nephrectomy. His previous creatinine on 03/10/2024 was 1.42. We will start him on IV fluids and monitor. Request Nephrology consultation if no improvement 2. Pancytopenia: Monitor 3. Sepsis source unknown: We will start him on empiric antibiotics. Check chest x-ray and a UA 4. Code status: Patient wishes to be full code 5. GI prophylaxis: Pepcid 6. DVT prophylaxis: Early ambulation and SCDs. Date of Service: Jan 14, 2025 Billing Provider: FLY MEADOWS MD Common Visit Codes: [id number] INP/OBS CARE (HIGH) FLY MEADOWS MD Jan 14, 2025 17:56
[2025-01-14] MEDS ORDERED: magnesium Cl slow-release 64mg tablet PO PRN (18:00)
[2025-01-14] MEDS ORDERED: potassium Cl 20 mEq SR tablet PO PRN ×2 (18:00)
[2025-01-14] MEDS ORDERED: magnesium sulf-water 4G/100mL 100 ML IV PRN (18:00)
[2025-01-14] MEDS ORDERED: potassium Cl 40MEQ/1/2NS 520ml 520 ML IV PRN (18:00)
[2025-01-14] MEDS ORDERED: ondansetron/PF 4mg/2ml inj IV PRN (18:00)
[2025-01-14] MEDS ORDERED: magnesium sulf-water 2g/50mL 50 ML IV PRN (18:00)
[2025-01-14] MEDS ORDERED: acetaminophen 325mg tablet PO PRN (18:00)
[2025-01-14] MEDS ORDERED: NO HOME MEDS (18:41)
[2025-01-14] MEDS: acetaminophen 325mg tablet PO ONE (19:18)
[2025-01-14] MEDS: CefTRIAXone/D5W-Rocephin 1gm 50 ML IV ONE (19:28)
[2025-01-14] MEDS: K and/or MAG REPLACEMENT MC SCH (20:00)
[2025-01-14] MEDS ORDERED: temazepam 15mg capsule PO PRN (21:00)
[2025-01-14] MEDS: normal saline 500ml IV soln 500 ML IV ONE (21:38)
--- NOTE | 2025-01-14 23:10 | Visit Coding Note ---
Date of Service: Jan 14, 2025 Billing Provider: FLY MEADOWS MD Common Visit Codes: [id number] INP/OBS CARE (HIGH) FLY MEADOWS MD Jan 14, 2025 23:10
[2025-01-14 23:22] LABS: BILIRUBIN,URINE NEGATIVE (Neg); CLARITY,URINE CLEAR (Clear); COLOR,URINE YELLOW (Yellow); GLUCOSE, URINE NEGATIVE (Neg); KETONES,URINE NEGATIVE (Neg); LEUKOCYTE ESTERASE ,URINE NEGATIVE (Neg); NITRITES, URINE NEGATIVE (Neg); OCCULT BLOOD,URINE MODERATE (Neg); PROTEIN,URINE NEGATIVE (Neg); UROBILINOGEN,URINE 0.2 E.U/dL (0.2-1.0)
[2025-01-14 23:23] LABS: UA COLLECTION TYPE CLN CATCH MIDSTREAM
[2025-01-14 23:33] LABS: BACTERIA,URINE FEW /HPF (Neg); RBC,URINE 0-2 /HPF (0-2); SQUAMOUS EPITHELIAL CELL,UR FEW /LPF (FEW); WBC,URINE NONE SEEN /HPF (0-4)
[2025-01-14 23:58] VITALS: BP_SYST 79; BP_SYST 80; BP_DIAS 46; PULSE 68; RESP 12; TEMP 97.6; O2SAT 99
[2025-01-15] VITALS (8 sets, daily range): BP systolic 106–146; BP diastolic 62–82; PULSE 55–102; RESP 14–24; TEMP 96.4–98.2; O2SAT 90–99
[2025-01-15] MEDS: normal saline 1000ml 1,000 ML IV ONE (00:10)
--- NOTE | 2025-01-15 02:40 | RADIOLOGY REPORT ---
CHEST RADIOGRAPH Indication: cough Technique: Single frontal view of the chest was obtained COMPARISON: DI CHEST,SINGLE VIEW on DOS: 09/27/24, DI CHEST,SINGLE VIEW on DOS: 10/08/23 FINDINGS: Lines and Tubes: None Lungs: Clear Pleura: No effusion. No pneumothorax. Cardiomediastinal contours: Unremarkable Bones: Unremarkable IMPRESSION: 1. No acute disease.
[2025-01-15 05:54] LABS: BASOPHILS % (AUTO) 0.7 % (0-1); EOSINOPHILS # (AUTO) 0.2 X10'3 (0-0.9); EOSINOPHILS % (AUTO) 8.9 % (0-6); HEMATOCRIT 27.6 % (42.0-52.0); HEMOGLOBIN 9.3 g/dl (14.0-17.9); LYMPHOCYTES # (AUTO) 0.7 X10'3 (1.1-4.8); LYMPHOCYTES % (AUTO) 40.3 % (21-51); MEAN CORPUSCULAR HEMOGLOBIN 31.2 PG (27.0-31.0); MEAN CORPUSCULAR HGB CONC 33.7 g/dL (33.0-36.5); MEAN CORPUSCULAR VOLUME 92.7 FL (78-98); MEAN PLATELET VOLUME 7.5 FL (7.4-10.4); MONOCYTES # (AUTO) 0.2 X10'3 (0-0.9); MONOCYTES % (AUTO) 12.5 % (2-12); NEUTROPHILS # (AUTO) 0.7 X10'3 (1.8-7.7); NEUTROPHILS % (AUTO) 37.6 % (42-75); PLATELET COUNT 71 X10'3 (140-440); RED BLOOD COUNT 2.98 X10'6 (4.70-6.10); WHITE BLOOD COUNT 1.8 X10'3 (4.5-11.0)
[2025-01-15 06:00] LABS: ALBUMIN 2.3 G/DL (3.4-5.0); ANION GAP 7 (8-16); BLOOD UREA NITROGEN 34 MG/DL (7-18); BUN/CREATININE RATIO 19.7 (10.0-20.0); CALCIUM 7.2 MG/DL (8.5-10.1); CHLORIDE 116 MMOL/L (99-107); CREATININE 1.73 MG/DL (0.60-1.10); GLUCOSE 80 MG/DL (70-104); POTASSIUM 4.6 MMOL/L (3.5-5.1); SODIUM 140 MMOL/L (135-145); eCRCL 38 ML/MIN; eGFR 40 ML/MIN
[2025-01-15 08:56] LABS: PLATELET ESTIMATE DECREASED; TOTAL CELLS COUNTED 100
--- NOTE | 2025-01-15 10:30 | PROGRESS NOTE ---
Daily Progress Note Providers to CC ~ Antibiotic Timeout Antibiotic Ordered?: Yes Subjective Patient has no new complaints. Seen resting comfortably. Objective Vital Signs Date Time Temp Pulse Resp B/P (MAP) Pulse Ox O2 Delivery O2 Flow Rate FiO2 01/15/25 08:00 Room Air 0.0 01/15/25 06:00 97.4 72 19 123/69 (87) 97 Result Diagram: 01/15/25 0511 01/15/25 0511 Awake cooperative in no acute distress HEENT normocephalic atraumatic Neck supple, no JVD Chest: Clear to auscultation, no wheezes crackles rhonchi Heart: Regular rate rhythm, no murmur or gallop rub Abdomen is soft nontender no organomegaly Extremities no cyanosis clubbing or edema Neuro exam is nonfocal Other Results Medications reviewed Problem\Assessment\Plan 59 years old male who was found slumped over in a chair at a gas station. 1. JUAN ALBERTO/CKD: Patient has had a nephrectomy. His previous creatinine on 03/10/2024 was 1.42. We will start him on IV fluids and monitor. Request Nephrology consultation if no improvement 2. Pancytopenia: Continue Monitor 3. Sepsis source unknown: Continue empiric abx Chest x-ray and UA negative 4. Code status: Patient wishes to be full code 5. GI prophylaxis: Pepcid 6. DVT prophylaxis: Early ambulation and SCDs. 9 Microscopic hematuria Recheck UA , May need urology as outpatient . Date of Service: Jan 15, 2025 Billing Provider: FLY MEADOWS MD Common Visit Codes: [id number] INP/OBS CARE(HIGH) FLY MEADOWS MD Jan 15, 2025 10:30
[2025-01-15] MEDS: famotidine 20mg tablet PO SCH (21:10)
[2025-01-16 02:00] VITALS: BP 141/100; PULSE 75; RESP 24; TEMP 97.6; O2SAT 97
[2025-01-16 06:00] VITALS: BP 170/84; PULSE 77; RESP 14; TEMP 97.3; O2SAT 98
[2025-01-16 06:11] LABS: BASOPHILS % (AUTO) 0.8 % (0-1); EOSINOPHILS # (AUTO) 0.3 X10'3 (0-0.9); HEMOGLOBIN 10.4 g/dl (14.0-17.9); LYMPHOCYTES # (AUTO) 1.1 X10'3 (1.1-4.8); LYMPHOCYTES % (AUTO) 38.6 % (21-51); MEAN CORPUSCULAR HEMOGLOBIN 31.2 PG (27.0-31.0); MEAN CORPUSCULAR HGB CONC 33.6 g/dL (33.0-36.5); MEAN CORPUSCULAR VOLUME 92.8 FL (78-98); MEAN PLATELET VOLUME 7.6 FL (7.4-10.4); MONOCYTES # (AUTO) 0.2 X10'3 (0-0.9); MONOCYTES % (AUTO) 7.7 % (2-12); NEUTROPHILS # (AUTO) 1.2 X10'3 (1.8-7.7); NEUTROPHILS % (AUTO) 42.9 % (42-75); PLATELET COUNT 69 X10'3 (140-440); RED BLOOD COUNT 3.35 X10'6 (4.70-6.10); WHITE BLOOD COUNT 2.8 X10'3 (4.5-11.0)
[2025-01-16 06:14] LABS: ALBUMIN 2.6 G/DL (3.4-5.0); ANION GAP 9 (8-16); BLOOD UREA NITROGEN 24 MG/DL (7-18); BUN/CREATININE RATIO 16.6 (10.0-20.0); CALCIUM 8.1 MG/DL (8.5-10.1); CHLORIDE 112 MMOL/L (99-107); CREATININE 1.45 MG/DL (0.60-1.10); GLUCOSE 70 MG/DL (70-104); MAGNESIUM 1.9 MG/DL (1.5-2.4); POTASSIUM 4.4 MMOL/L (3.5-5.1); SODIUM 140 MMOL/L (135-145); TOTAL CARBON DIOXIDE 18.7 MMOL/L (24-32); eCRCL 45 ML/MIN; eGFR 49 ML/MIN
[2025-01-16 07:26] LABS: TOTAL CELLS COUNTED 100
[2025-01-16 07:27] LABS: PLATELET ESTIMATE DECREASED
--- NOTE | 2025-01-16 11:18 | PROGRESS NOTE ---
Daily Progress Note Providers to CC ~ Antibiotic Timeout Antibiotic Ordered?: No Subjective No new complaints. Patient states he still feels weak. Objective Vital Signs Date Time Temp Pulse Resp B/P (MAP) Pulse Ox O2 Delivery O2 Flow Rate FiO2 01/16/25 06:00 97.3 77 14 170/84 (112) 98 Room Air 01/15/25 20:00 0.0 Result Diagram: 01/16/25 0545 01/16/25 0545 Awake cooperative in no acute distress HEENT normocephalic atraumatic Neck supple, no JVD Chest: Clear to auscultation, no wheezes crackles rhonchi Heart: Regular rate rhythm, no murmur or gallop rub Abdomen is soft nontender no organomegaly Extremities no cyanosis clubbing or edema Neuro exam is nonfocal Other Results Medications reviewed Problem\Assessment\Plan 59 years old male who was found slumped over in a chair at a gas station. 1. JUAN ALBERTO/CKD: Patient has had a nephrectomy. His previous creatinine on 03/10/2024 was 1.42. Continue IV hydration. Nephrology consultation requested. 4. Code status: Full code. 5. GI prophylaxis: Pepcid 6. DVT prophylaxis: Early ambulation and SCDs. 7 Microscopic hematuria :, May need urology as outpatient . 8. Disposition: Home when cleared by PT. Patient awaiting physical therapy evaluation. As per PT notes, patient was triaged yesterday due to staff shortage. Date of Service: Jan 16, 2025 Billing Provider: FLY MEADOWS MD Common Visit Codes: [id number] INP/OBS CARE(MOD) FLY MEADOWS MD Jan 16, 2025 11:17
[2025-01-16 12:13] VITALS: BP 140/80; PULSE 63; RESP 18; TEMP 97.6; O2SAT 100
[2025-01-16 13:12] LABS: BILIRUBIN,URINE NEGATIVE (Neg); CLARITY,URINE CLEAR (Clear); COLOR,URINE YELLOW (Yellow); GLUCOSE, URINE NEGATIVE (Neg); KETONES,URINE NEGATIVE (Neg); LEUKOCYTE ESTERASE ,URINE NEGATIVE (Neg); NITRITES, URINE NEGATIVE (Neg); OCCULT BLOOD,URINE SMALL (Neg); PROTEIN,URINE NEGATIVE (Neg); UROBILINOGEN,URINE 0.2 E.U/dL (0.2-1.0)
[2025-01-16 13:19] LABS: UA COLLECTION TYPE VOIDED
[2025-01-16 13:21] LABS: RBC,URINE 0-2 /HPF (0-2); WBC,URINE 0-4 /HPF (0-4)
[2025-01-16 13:22] LABS: BACTERIA,URINE FEW /HPF (Neg); SQUAMOUS EPITHELIAL CELL,UR FEW /LPF (FEW)
[2025-01-16 15:00] VITALS: BP 143/93; PULSE 88; RESP 18; TEMP 97.7; O2SAT 96
[2025-01-16 18:00] VITALS: BP 139/72; PULSE 68; RESP 18; TEMP 97.9; O2SAT 96
[2025-01-16 22:00] VITALS: BP 152/77; PULSE 59; RESP 20; TEMP 97.4; O2SAT 98
[2025-01-17 02:00] VITALS: BP 158/77; PULSE 69; RESP 16; TEMP 97.6; O2SAT 97
[2025-01-17 05:52] LABS: BASOPHILS % (AUTO) 0.6 % (0-1); EOSINOPHILS # (AUTO) 0.2 X10'3 (0-0.9); EOSINOPHILS % (AUTO) 8.2 % (0-6); HEMATOCRIT 30.2 % (42.0-52.0); HEMOGLOBIN 10.5 g/dl (14.0-17.9); LYMPHOCYTES # (AUTO) 1.3 X10'3 (1.1-4.8); LYMPHOCYTES % (AUTO) 44.5 % (21-51); MEAN CORPUSCULAR HGB CONC 34.7 g/dL (33.0-36.5); MEAN CORPUSCULAR VOLUME 89.5 FL (78-98); MEAN PLATELET VOLUME 7.5 FL (7.4-10.4); MONOCYTES # (AUTO) 0.2 X10'3 (0-0.9); MONOCYTES % (AUTO) 7.8 % (2-12); NEUTROPHILS # (AUTO) 1.2 X10'3 (1.8-7.7); NEUTROPHILS % (AUTO) 38.9 % (42-75); PLATELET COUNT 77 X10'3 (140-440); RED BLOOD COUNT 3.38 X10'6 (4.70-6.10); RED CELL DISTRIBUTION WIDTH 13.3 % (11.5-14.5)
[2025-01-17 06:00] VITALS: BP 147/77; PULSE 82; RESP 18; TEMP 97.3; O2SAT 96
[2025-01-17 06:13] LABS: ALBUMIN 2.6 G/DL (3.4-5.0); ANION GAP 15 (8-16); BLOOD UREA NITROGEN 19 MG/DL (7-18); BUN/CREATININE RATIO 15.6 (10.0-20.0); CALCIUM 8.3 MG/DL (8.5-10.1); CHLORIDE 112 MMOL/L (99-107); CREATININE 1.22 MG/DL (0.60-1.10); GLUCOSE 64 MG/DL (70-104); MAGNESIUM 1.7 MG/DL (1.5-2.4); POTASSIUM 4.6 MMOL/L (3.5-5.1); SODIUM 145 MMOL/L (135-145); TOTAL CARBON DIOXIDE 18.2 MMOL/L (24-32); eCRCL 54 ML/MIN; eGFR 60 ML/MIN
[2025-01-17 15:00] VITALS: BP 136/68; PULSE 53; RESP 19; TEMP 97.8; O2SAT 98
--- NOTE | 2025-01-17 15:36 | DISCHARGE SUMMARY ---
Discharge Summary Providers to CC ~ Discharge Summary Admission Diagnosis: FRANTZ Hospital Course DATE OF ADMISSION: 01/14/2025 DATE OF DISCHARGE: 01/17/2025 Discharge Diagnosis\Comment: FRANTZ due to vasomotor nephropathy One episode of Hypoglycemia due to poor p.o. 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 Patient reported having diarrhea x2 weeks and productive cough for one week. Patient was noted to have elevated creatinine was admitted for further treatment Please refer to admission H&P for more details Hospital course: Patient was admitted on the monitored floor under hospital course as follows. * Frantz/CKD: Likely due to tubular stasis. Patient has had a prior nephrectomy. He had a creatinine of 2.55 which trended down after IV hydration to 1.23. * Probable enteric colitis: CT scan of the abdomen and pelvis showed fluid distention of the large bowel loops as well as diffuse moderate distention of the small bowel loops. This could be secondary to enteric colitis. Patient treated with Levaquin. At no point did the patient complain of any abdominal pain however did have complaints of diarrhea for two weeks prior to coming to the hospital . During this hospital stay, no diarrhea was reported to me. Stool was negative for C diff and occult blood. * Hypoglycemia: Patient does not have any history of diabetes mellitus. Likely due to poor p.o. intake. Treated with D5/0.25 normal saline. * Microscopic hematuria: Initial UA showed occult blood moderate, and a follow up UA showed small occult blood. Deferred to outpatient follow up with the urologist. * Metabolic encephalopathy: Resolved * Anemia: Likely of chronic disease. * Code status: Patient was kept as a full code as per his request Discharge exam: Examined the patient on the day of discharge. Awake cooperative in no acute distress HEENT normocephalic atraumatic Neck supple, no JVD Chest: Clear to auscultation, no wheezes crackles rhonchi Heart: Regular rate rhythm, no murmur or gallop rub Abdomen is soft nontender no organomegaly Extremities no cyanosis clubbing or edema Neuro exam is nonfocal *Problems/Diagnosis: (1) FRANTZ (acute kidney injury) Total Time Spent on D/C: > 30 Minutes Date of Service: Jan 18, 2025 Billing Provider: FLY MEADOWS MD Common Visit Codes: [id number]-MFA/OBS DISCH DAY >30min FLY MEADOWS MD Jan 17, 2025 15:36
--- NOTE | 2025-01-17 15:44 | PROGRESS NOTE ---
Daily Progress Note Providers to CC ~ Antibiotic Timeout Antibiotic Ordered?: Yes Subjective Patient reports he does feel better but not bad enough to go home yet. Objective Vital Signs Date Time Temp Pulse Resp B/P (MAP) Pulse Ox O2 Delivery O2 Flow Rate FiO2 01/17/25 08:00 Room Air 0.0 01/17/25 06:30 54 01/17/25 06:00 97.3 18 147/77 (100) 96 Result Diagram: 01/17/25 0518 01/17/25 0518 Awake cooperative in no acute distress HEENT normocephalic atraumatic Neck supple, no JVD Chest: Clear to auscultation, no wheezes crackles rhonchi Heart: Regular rate rhythm, no murmur or gallop rub Abdomen is soft nontender no organomegaly Extremities no cyanosis clubbing or edema Neuro exam is nonfocal Other Results Medications reviewed Problem\Assessment\Plan 59 years old male who was found slumped over in a chair at a gas station. 1.JUAN ALBERTO/CKD: Patient has had a nephrectomy. His previous creatinine on 03/10/2024 was 1.42. Continue IV hydration. Creatinine is trending down in his now 1.22. 4. Probable enteric colitis: CT scan of the abdomen and pelvis showed fluid distention of the large bowel loops as well as diffuse moderate distention of the small bowel loops. This could be secondary to do ideal states/enteric colitis. Continue Levaquin. We will check a repeat x-ray of the abdomen. 5. Hypoglycemia: DC normal saline and switch to D5 quarter-normal NS. Continue monitor. Discussed with NILAM Quan. 6. DVT prophylaxis: Early ambulation and SCDs. 7 Microscopic hematuria : An initial UA showed occult blood moderate, and a follow up UA shows small occult blood. Deferred to outpatient follow up. Check PSA. 8. Metabolic encephalopathy resolved. 9. GI prophylaxis: Pepcid Date of Service: Jan 17, 2025 Billing Provider: FLY MEADOWS MD Common Visit Codes: [id number] INP/OBS CARE(HIGH) FLY MEADOWS MD Jan 17, 2025 15:44
[2025-01-17] MEDS: levoFLOXACIN-Levaquin 500mg/D5 100 ML IV SCH (16:03)
[2025-01-17] MEDS: dextrose 5%-1/4 normal saline 1,000 ML IV SCH (17:11)
[2025-01-17] MEDS: lactose-reduced food (Ensure Enlive) - 237ml bottle PO SCH (17:30)
[2025-01-17 18:00] VITALS: BP 114/73; PULSE 60; RESP 16; TEMP 97.1; O2SAT 9; O2SAT 96
--- NOTE | 2025-01-17 18:23 | RADIOLOGY REPORT ---
EXAM: DI ABDOMEN,SINGLE VIEW(KUB) HISTORY: ABDOMEN DISTENSION COMPARISON: None TECHNIQUE: Single AP of the abdomen and pelvis was obtained. Findings: Frontal view of the abdomen demonstrates a nonobstructive bowel gas pattern with multiple loops of ga seous distended bowel. No visualized renal calculi. There is no evidence of an acute fracture, disloc ation, blastic, or lytic lesions. The visualized portions of the lung bases are unremarkable. IVC filter. Multiple surgical clips in the midabdomen. No superficial soft tissue abnormalities. Impression: 1. Nonobstructive bowel gas pattern with multiple loops of gaseous distended bowel. Correlate for ile us.
[2025-01-17 20:00] VITALS: RESP 18; O2SAT 96
[2025-01-17 22:00] VITALS: BP 117/70; PULSE 54; RESP 16; TEMP 97.3; O2SAT 97
[2025-01-18 06:00] VITALS: BP 143/73; PULSE 58; RESP 20; TEMP 98.7; O2SAT 98
[2025-01-18 07:42] LABS: BASOPHILS % (AUTO) 0.4 % (0-1); EOSINOPHILS # (AUTO) 0.3 X10'3 (0-0.9); EOSINOPHILS % (AUTO) 7.3 % (0-6); HEMATOCRIT 29.8 % (42.0-52.0); HEMOGLOBIN 10.4 g/dl (14.0-17.9); LYMPHOCYTES # (AUTO) 1.5 X10'3 (1.1-4.8); LYMPHOCYTES % (AUTO) 42.1 % (21-51); MEAN CORPUSCULAR HGB CONC 35.1 g/dL (33.0-36.5); MEAN CORPUSCULAR VOLUME 88.3 FL (78-98); MEAN PLATELET VOLUME 7.4 FL (7.4-10.4); MONOCYTES # (AUTO) 0.4 X10'3 (0-0.9); MONOCYTES % (AUTO) 11.2 % (2-12); NEUTROPHILS # (AUTO) 1.4 X10'3 (1.8-7.7); PLATELET COUNT 90 X10'3 (140-440); RED BLOOD COUNT 3.37 X10'6 (4.70-6.10); WHITE BLOOD COUNT 3.7 X10'3 (4.5-11.0)
[2025-01-18 08:29] LABS: BURR CELLS 1+; ELLIPTOCYTES FEW; PLATELET ESTIMATE DECREASED
[2025-01-18 08:45] LABS: ALBUMIN 2.7 G/DL (3.4-5.0); ANION GAP 9 (8-16); BLOOD UREA NITROGEN 19 MG/DL (7-18); BUN/CREATININE RATIO 15.4 (10.0-20.0); CALCIUM 8.3 MG/DL (8.5-10.1); CHLORIDE 108 MMOL/L (99-107); CREATININE 1.23 MG/DL (0.60-1.10); GLUCOSE 77 MG/DL (70-104); MAGNESIUM 1.6 MG/DL (1.5-2.4); POTASSIUM 4.7 MMOL/L (3.5-5.1); SODIUM 140 MMOL/L (135-145); TOTAL CARBON DIOXIDE 23.3 MMOL/L (24-32); eCRCL 48 ML/MIN; eGFR 60 ML/MIN
[2025-01-18 11:00] VITALS: BP 117/72; PULSE 52; RESP 16; TEMP 97.6; O2SAT 96
[2025-01-18] MEDS ORDERED: LEVO-65 PO (13:09)
== END 2025-01-18 16:24 | disposition home or self-care (01) | DRG 424 ==
LOC: ER 13:05 → ED HOLD 17:59 → EDBEDREQ 22:06 → EDBEDREQSVC 22:06 → PCU 3S 23:48
PROVIDERS: ADMIT Internal Medicine; ATTEND Internal Medicine
DX: E16.2 Hypoglycemia, unspecified (principal); N17.0 Acute kidney failure with tubular necrosis; D61.818 Other pancytopenia; G93.41 Metabolic encephalopathy; D63.1 Anemia in chronic kidney disease; R31.29 Other microscopic hematuria; K52.9 Noninfective gastroenteritis and colitis, unspecified; N18.9 Chronic kidney disease, unspecified; Z90.5 Acquired absence of kidney; Z85.528 Personal history of other malignant neoplasm of kidney; Z59.01 Sheltered homelessness; Z83.3 Family history of diabetes mellitus
CPT/HCPCS: 36415; 71045; 74018; 74176; 80048; 80053; 81001; 82272; 82948; 83605; 83690; 83735; 84153; 85007; 85008; 85025; 87040; 87045; 87046; 87081; 87324; 87449; 89055; 93005; 96361; 96365; 97116; 97161; 97530; 99285; G0378; J0696; J1956; J7030; J7040; J7042